=== PATIENT | female | born 1995 | race Caucasian/White ===

== ENCOUNTER 2016-10-20 12:05 | Emergency (ER) | payer BC, MEDICAID ==
[~2016-10-20] VITALS: Ht 165.1 cm; Wt 65.8 kg
[~2016-10-20 12:05] MED LIST: PREN1TAB79 PO
--- OUTSIDE RECORDS SUMMARY | 2016-10-20 12:15 | XMS REPORT | Continuity of Care Document ---
Author Author Formerly [facility], [facility] Address Unknown Phone Unavailable Allergies Active Description Code Type Severity Reaction Onset Reported/Identified Relationship to Patient Clinical Status Yes No Known Drug Allergies [id number] Drug Allergy Unknown N/ A 04/30/2015 Medications Problems Date Dx Coded Attending Type Code Diagnosis Diagnosed By 09/22/2010 RICK HERNANDEZ DO V05.8 GARDASIL 10/30/2011 RICK HERNANDEZ DO V74.1 TB SCREENING 03/09/2014 RICK HERNANDEZ DO V25.01 CONTRACEPTION - ORAL CONTRACEPTION 03/09/2014 RICK HERNANDEZ DO V74.5 STD SCREEN 10/22/2014 Ot 836.0 10/22/2014 Ot E000.8 10/22/2014 Ot E007.6 10/22/2014 Ot E849.4 10/22/2014 Ot E928.9 11/05/2014 KATLIN RIVAS MD Ot V28.81 11/05/2014 KATLIN RIVAS MD Ot V28.81 11/06/2014 KATLIN RIVAS MD Ot V28.81 11/20/2014 KATLIN RIVAS MD Ot V28.81 12/03/2014 KATLIN RIVAS MD Ot V28.81 01/07/2015 KATLIN RIVAS MD Ot V28.81 03/10/2015 Ot 836.0 03/10/2015 Ot E000.8 03/10/2015 Ot E007.6 03/10/2015 Ot E849.4 03/10/2015 Ot E928.9 03/10/2015 KATLIN RIVAS MD Ot V28.81 03/10/2015 KATLIN RIVAS MD Ot V28.81 03/25/2015 KATLIN RIVAS MD Ot O36.5930 04/30/2015 KATLIN RIVAS MD Ot O41.03X0 04/30/2015 KATLIN RIVAS MD Ot Z3A.36 05/03/2015 KATLIN RIVAS MD Ot O36.5930 05/03/2015 KATLIN RIVAS MD Ot Z3A.00 05/05/2015 EVELYN SINGLETON, KATLIN Layne Ot O41.03X0 05/05/2015 EVELYN SINGLETON, KATLIN Layne Ot O41.03X0 05/10/2015 EVELYN SINGLETON, KATLIN Layne Ot O41.03X0 05/10/2015 EVELYN SINGLETON, KATLIN Layne Ot Z3A.00 05/13/2015 EVELYN SINGLETON, KATLIN Layne Ot O36.5930 05/13/2015 EVELYN SINGLETON, KATLIN Layne Ot O41.03X0 05/13/2015 EVELYN SINGLETON, KATLIN Layne Ot Z3A.35 05/16/2015 EVLEYN SINGLETON, KATLIN Layne Ot O41.03X0 05/16/2015 EVELYN SINGLETON, KATLIN Layne Ot O72.1 05/16/2015 EVELYN SINGLETON, KATLIN Layne Ot Z23 05/16/2015 EVELYN SINGLETON, KATLIN Layne Ot Z37.0 05/17/2015 EEVLYN SINGLETON, KATLIN Layne Ot O36.5930 05/17/2015 EVELYN SINGLETON, KATLIN Layne Ot O36.5930 05/17/2015 EVELYN SINGLETON, KATLIN Layne Ot O41.03X0 05/17/2015 EVELYN SINGLETON, KATLIN Layne Ot Z3A.35 05/17/2015 EVELYN SINGLETON, KATLIN Layne Ot O41.03X0 05/17/2015 KATLIN RIVAS MD Ot Z3A.00 05/27/2015 EVELYN SINGLETON, KATLIN Layne Ot O41.03X0 05/27/2015 KATLIN RIVAS MD Ot Z3A.00 06/14/2015 EVELYN SINGLETON, KATLIN Layne Ot O41.03X0 06/14/2015 KATLIN RIVAS MD Ot Z3A.00 08/04/2015 KATLIN RIVAS MD Ot O41.03X0 OLIGOHYDRAMNIOS, THIRD TRIMESTER, NOT AP 08/04/2015 KATLIN RIVAS MD Ot Z3A.00 WEEKS OF GESTATION OF NOT SPEC 08/05/2015 KATLIN RIVAS MD Ot O41.03X0 OLIGOHYDRAMNIOS, THIRD TRIMESTER, NOT AP 08/05/2015 KATLIN RIVAS MD Ot Z3A.00 WEEKS OF GESTATION OF NOT SPEC Procedures Code Description [place] [address] TEST, URINE (IN-HOUSE) 03/09/2014 56798 GC/CHLAM URINE ([facility]) 03/11/2014 Results Encounters ACCT No. Visit Date/Time Discharge Status Pt. Type Provider Facility Loc./Unit Complaint [id number] 03/09/2014 16:28:00 03/09/2014 23: 59:59 CLS Outpatient RICK HERNANDEZ DO
--- NOTE | 2016-10-20 12:41 | ED GU-Female ---
General Chief Complaint: -Female Stated Complaint: POSS MISCARRIAGE Nursing Triage Note: c/o vaginal bleeding since Sun. Cramping started last night. Hx of 6 weeks gestation. Nursing Sepsis Screen: No Definite Risk Source: patient, spouse Exam Limitations: no limitations History of Present Illness Time seen by provider: 12:41 Initial Comments 20-year-old female patient presents to the emergency department complains of vaginal bleeding beginning Sunday. Reports today bleeding is similar to a menstruation. Denies fever, nausea, vomiting, yellow or green discharge, difficulty with urination. Patient states she is approximately 6 weeks . Patient was seen by Dr. Hall last with pelvic exam performed. Timing/Duration: getting worse, other (onset Sunday.) Severity/Quality: cramping Location: suprapubic Radiation: none Activities at Onset: none Prior Genitourinary Problems: none Sexual [place] History: less than 2 months ago, single partner Allergies and Home Medications Allergies Coded Allergies: No Known Drug Allergies (Unverified , 04/30/15) Home Medications Vit W-Ca,Fe,FA(<1 mg) 1 Each Tablet, 1 TAB PO DAILY, (Reported) Constitutional: No chills, No dizziness, No fever, No malaise Respiratory: no symptoms reported Cardiovascular: no symptoms reported Gastrointestinal: abdominal pain (suprapubic abdominal cramping), No constipation, No diarrhea, No loss of appetite, No nausea, No vomiting Genitourinary: see HPI, denies burning, denies discharge, denies dysuria, denies frequency, denies flank pain, denies hematuria, pain (intermittent suprapubic abdominal cramping), other (vaginal bleeding) : Yes Expected Date of Delivery: May 28, 2017 LMP: August 21, 2016 Musculoskeletal: No back pain Skin: no symptoms reported Psychiatric/Neurological: No Symptoms Reported All Other Systemes Reviewed Negative Unless Noted: Yes (Negative excepted noted.) Past Ooohxtp-Lpodat-Vqpyii Hx Patient Social History Recent Foreign Travel: No Contact w/Someone Who Travel: No Recent Infectious Disease Expo: No Immunizations Up To Date Tetanus Booster (TDap): Unknown PED Vaccines UTD: No Surgeries HX Surgeries: Yes (left knee) Respiratory Hx Respiratory Disorders: No Cardiovascular Hx Cardiac Disorders: No Neurological Hx Neurological Disorders: No Reproductive System : Yes Hx : 2 Hx Para: 1 Hx Total # of Abortions (Spona: 0 Hx Reproductive Disorders: No Female Reproductive Disorders: Denies Genitourinary Hx Genitourinary Disorders: No Gastrointestinal Hx Gastrointestinal Disorders: Yes Gastrointestinal Disorders: Gastroesophageal Reflux Musculoskeletal Hx Musculoskeletal Disorders: No Endocrine Hx Endocrine Disorders: No HEENT HX ENT Disorders: No Cancer Hx Cancer: No Psychosocial Hx Psychiatric Problems: No Integumentary HX Skin/Integumentary Disorder: No Blood Transfusions Hx Blood Disorders: No Reviewed Nursing Assessment Reviewed/Agree w Nursing PMH: Yes Family Medical History Significant Family History: No Pertinent Family Hx Family Medial History: Alzheimer's disease 19 MOTHER (grandfather) Completed stroke 19 FATHER (grandfather) Diabetes mellitus 19 FATHER (grandparent) 19 MOTHER (maternal grandparent) Hypertension 19 MOTHER (mother) Non-Hodgkin's lymphoma Respiratory disorder 19 MOTHER (copd grandmother) Physical Exam Vital Signs Vital Sign - Last 12Hours 10/20/16 12:19 Temp 97.5 Pulse 82 Resp 16 B/P (MAP) 117/76 Pulse Ox 98 Capillary Refill : Less Than 3 Seconds General Appearance: WD/WN, no apparent distress HEENT: PERRL/EOMI, pharynx normal Neck: supple, normal inspection Cardiovascular: regular rate, rhythm, no edema, no murmur Respiratory: lungs clear, normal breath sounds, no respiratory distress Gastrointestinal: normal bowel sounds, non tender (unable to reproduce tenderness on exam.), soft, no organomegaly Back: normal inspection Extremities: no pedal edema, normal capillary refill Neurologic/Psychiatric: alert, normal mood/affect, oriented x 3 Skin: normal color, warm/dry Progress/Results/Core Measures Results/Orders Lab Results Laboratory Tests Test 10/20/16 12:51 10/20/16 13:35 Range/Units Human Chorionic Gonadotropin, Quant 2914 H <5 MIU/ML Urine Color YELLOW Urine Clarity CLEAR Urine pH 6.5 5-9 Urine Specific [place] 1.015 L 1.016-1.022 Urine Protein NEGATIVE NEGATIVE Urine Glucose (UA) NEGATIVE NEGATIVE Urine Ketones NEGATIVE NEGATIVE Urine Nitrite NEGATIVE NEGATIVE Urine Bilirubin NEGATIVE NEGATIVE Urine Urobilinogen NORMAL NORMAL MG/DL Urine Leukocyte Esterase NEGATIVE NEGATIVE Urine RBC (Auto) 5+ H NEGATIVE Urine RBC RARE /HPF Urine WBC NONE /HPF Urine Squamous Epithelial Cells 2-5 /HPF Urine Crystals NONE /LPF Urine Bacteria NEGATIVE /HPF Urine Casts NONE /LPF Urine Mucus NEGATIVE /LPF Urine Culture Indicated NO My Orders Orders - ADEOLA MORA Hcg,Quantitative (10/20/16 12:23) Us Ob Transvaginal [id number] (10/20/16 12:23) Ua Culture If Indicated (10/20/16 13:21) Vital Signs/I&O Vital Sign - Last 12Hours 10/20/16 12:19 Temp 97.5 Pulse 82 Resp 16 B/P (MAP) 117/76 Pulse Ox 98 Blood Pressure Mean: 90 Diagnostic Imaging Diagonstic Imaging: Ultrasound Plain Films/CT/US/NM/MRI: pelvis Comments Single intrauterine in fetus measuring 6 weeks 4 days. No cardiac motion noted suggesting demise. Can not exclude early findings. findings per Dr. Perez Reviewed: Discussed w/Radiologist (discussed with Dr. Raudel Perez) Departure Communication Progress Notes Patient seen and evaluated. Patient initially reported being 6 weeks gestation ; however, based on LMP patient is 8 wks 4 days. All laboratory and diagnostic findings discussed with the patient. Patient and spouse both report they were able to find a heart rate of 115 bpm last week in Dr. Hlal's office. In light of previously hearing FHT's, findings of U/S today are indicative of missed AB with demise. Patient instructed to follow-up with Dr. Hall Sunday or Sunday in his office and to call Sunday morning for appointment time. Patient given an outpatient order for repeat HCG quant on . All return precautions were discussed with the patient as described in the discharge instructions of this report. Patient voices understanding and agrees with the treatment plan. Patient case discussed with Dr. Barajas, he agrees with the plan of care. Impression Impression: Primary Impression: Missed with demise before 20 completed weeks of gestation Disposition: 01 HOME, SELF-CARE Condition: Improved Departure-Patient Inst. Decision time for Depature: 14:37 Referrals: CHERRY HALL MD, CHAD C MD (PCP/Family) Primary Care Physician Patient Instructions: Threatened Miscarriage (DC) Add. Discharge Instructions: All discharge instructions reviewed with patient and/or family. Voiced understanding. Tylenol extra strength [id number] as directed for pain. Drink plenty of fluids. No intercourse, use of tampons, or strenuous activity until released by Dr. Hall. Follow-up with Dr. Hall Sunday or Sunday for recheck, repeat ultrasound, and repeat labs. Call first thing Sunday morning for appointment time. Return to the emergency department for worsened pain, fever, vaginal bleeding with greater than 2 pads per hour for greater than 2 hours, vaginal discharge, difficulty with urination, or any other concerns. Work/School Note: Work Release Form Date Seen in the Emergency Department: Oct 20, 2016 Return to Work: Oct 21, 2016 ADEOLA MORA Oct 20, 2016 12:41
[2016-10-20 13:43] LABS: BILIRUBIN,URINE NEGATIVE (NEGATIVE); KETONES,URINE NEGATIVE (NEGATIVE); LEUKOCYTE ESTERASE ,URINE NEGATIVE (NEGATIVE); NITRITE,URINE NEGATIVE (NEGATIVE); PH,URINE 6.5 (5-9); PROTEIN,URINE NEGATIVE (NEGATIVE); UROBILINOGEN,URINE NORMAL (NORMAL)
[2016-10-20 14:45] VITALS: BP 116/74
--- NOTE | 2016-10-20 14:49 | Diagnostic Imaging Report ---
Obstetrical sonogram. INDICATION: Evaluate . FINDINGS: There is a single intrauterine gestation demonstrated. Based on the patient 's reported last menstrual period, the gestation should be 8 weeks and 4 days. The crown-rump length of the pole is measuring at 6 weeks 4 days. There is no demonstration of cardiac motion. There is a large right ovarian corpus luteal cyst. The ovary maintains normal Doppler blood flow. The left ovary is not demonstrated. IMPRESSION: There is an intrauterine gestation with a pole and a yolk sac. pole measures at 6 weeks 4 days, and there is no evidence of cardiac motion. While the features are suspect for cardiac demise, given a reported estimated gestational age of 8 weeks 4 days based on last menstrual period, an early gestation is not yet excluded. Recommend continued correlation with serial quantitative beta hCGs and repeat sonographic imaging as clinically indicated. These findings were discussed with CRIS Matta, in the [facility] Emergency Department prior to this dictation. Dictated by: Dictated on workstation # [id number]
== END 2016-10-20 14:45 | disposition home or self-care (01) ==
LOC: EDUNIT# 12:05 → ER 12:09
DX: O02.1 Missed abortion (principal); O99.62 Diseases of the digestive system complicating childbirth; K21.9 Gastro-esophageal reflux disease without esophagitis; Z3A.08 8 weeks gestation of pregnancy; Z98.890 Other specified postprocedural states
CPT/HCPCS: 36415; 76817; 81000; 84702; 99282

== ENCOUNTER 2017-06-07 11:33 | Inpatient (IN) | payer BC ==
[~2017-06-07] VITALS: Ht 165.1 cm; Wt 71.2 kg
[2017-06-07 11:40] VITALS: BP 112/67
[2017-06-07] MEDS: D5 LR IV SOLUTION 1,000 ML IV SCH ×4 (11:49→21:14)
[2017-06-07 12:15] LABS: HEMOGLOBIN 10.8 G/DL (11.5-16.0); RED BLOOD COUNT 3.42 10^6/uL (4.35-5.85); WHITE BLOOD COUNT 11.9 10^3/uL (4.3-11.0)
[2017-06-07 12:21] LABS: BILIRUBIN,URINE NEGATIVE (NEGATIVE); CLARITY,URINE CLEAR; COLOR,URINE YELLOW; GLUCOSE, URINE (UA) NEGATIVE (NEGATIVE); KETONES,URINE NEGATIVE (NEGATIVE); LEUKOCYTE ESTERASE ,URINE NEGATIVE (NEGATIVE); NITRITE,URINE NEGATIVE (NEGATIVE); PH,URINE 7 (5-9); PROTEIN,URINE NEGATIVE (NEGATIVE); UROBILINOGEN,URINE NORMAL (NORMAL)
[2017-06-07] MEDS ORDERED: CATHETER FLUSH 10 ML SYR IV PRN (12:30)
[2017-06-07 12:33] LABS: BACTERIA,URINE NEGATIVE /HPF; RBC,URINE 25-50 /HPF; SQUAMOUS EPITHELIAL CELL,UR 0-2 /HPF; WBC,URINE RARE /HPF
[2017-06-07] MEDS: BUTORPHANOL INJ 2 MG/ML (STADOL) VIAL IV PRN ×5 (12:55→23:44)
[2017-06-07] MEDS ORDERED: ceFAZolin 1,000 MG (ANCEF) VIAL ONE (14:14)
[2017-06-07] MEDS ORDERED: NS (IVPB) 100 ML ONE (14:15)
--- NOTE | 2017-06-07 15:11 | Diagnostic Imaging Report ---
INDICATION: Right flank pain and hematuria. TECHNIQUE: Bilateral renal sonography performed in the routine fashion. COMPARISON: There is no previous study for comparison. FINDINGS: On the right side, the kidney measured 12.8 x 6.9 x 7.7 cm. There was significant right hydronephrosis. On the left side, the kidney measured 9.8 x 5.8 x 5.5 cm. There was no left hydronephrosis. Visualized portions of the bladder were unremarkable. Left ureteral jet was visualized, right ureteral jet was not seen. IMPRESSION: There is significant right-sided hydronephrosis. There was no right ureteral jet visualized. Left kidney shows no hydronephrosis. Urinary bladder is otherwise unremarkable. Dictated by: Dictated on workstation # [id number]
[2017-06-07] MEDS ORDERED: INFLUENZA TRIvalent 2017-2018 0.5 ML/45 MCG SYR IM ONE (15:15)
[2017-06-07 17:00] VITALS: BP 117/67
--- NOTE | 2017-06-07 17:40 | History & Physical ---
History and Physical Date Seen by Provider: Jun 07, 2017 Time Seen by Provider: 17:34 This patient is a 21-year-old G1 white female currently at 28 weeks gestation. She was seen in clinic today with complaint of severe pelvic right side and right flank pain. She reported having blood bloody fluid oozing from the vagina. On exam there was no blood in the vaginal vault. Her urine was grossly bloody. Her presentation was a fairly typical for a ureteral stone. She was sent to labor and delivery for evaluation and further management. UA was consistent with nephrolithiasis/ureteral lithiasis. Patient has been treated with IV fluids and IV analgesics with good effect. An ultrasound of the kidney and ureters showed a dilated right ureter that appeared to be obstructed and no ureteral jets in the bladder from the right ureter. The left kidney and ureter were normal. Dr. Grande was consult via telephone by the labor and delivery nurse(Rashida) and requested a limited noncontrast CT which has been ordered. I was called by a senior manufacturing technician with concerns about doing a CT on a woman they offered a KUB and some other type of ultrasound. I agree that they could do whatever studies would be eliminating and with the Rafael requested Dr. Grande gave to determine if there was specifically a stone. Thus far nothing further has been done. This evening the patient is comfortable after just having it dose of Stadol. She is voiding well. She is empirically on Ancef. Allergies are none Medications are vitamins Medical social and surgical histories are per the antepartum record HEENT exam is normal Neck is supple no lymphadenopathy no thyromegaly Abdomen is gravid soft nontender nondistended Extremities show no clubbing or cyanosis. There is minimal pretibial pitting edema. There is no Homans sign. There is mild right CVA tenderness. There is no paraspinal rigidity. Pelvic exam shows a cervix that is thick and closed on exam performed in my clinic monitor shows a normal NST Laboratory Tests Test 06/07/17 11:48 06/07/17 12:10 Range/Units White Blood Count 11.9 H 4.3-11.0 10^3/uL Red Blood Count 3.42 L 4.35-5.85 10^6/uL Hemoglobin 10.8 L 11.5-16.0 G/DL Hematocrit 31 L 35-52 % Mean Corpuscular Volume 91 80-99 FL Mean Corpuscular Hemoglobin 32 25-34 PG Mean Corpuscular Hemoglobin Concent 35 32-36 G/DL Red Cell Distribution Width 13.0 10.0-14.5 % Platelet Count 225 130-400 10^3/uL Mean Platelet Volume 10.0 7.4-10.4 FL Urine Color YELLOW Urine Clarity CLEAR Urine pH 7 5-9 Urine Specific [place] 1.005 L 1.016-1.022 Urine Protein NEGATIVE NEGATIVE Urine Glucose (UA) NEGATIVE NEGATIVE Urine Ketones NEGATIVE NEGATIVE Urine Nitrite NEGATIVE NEGATIVE Urine Bilirubin NEGATIVE NEGATIVE Urine Urobilinogen NORMAL NORMAL MG/DL Urine Leukocyte Esterase NEGATIVE NEGATIVE Urine RBC (Auto) 4+ H NEGATIVE Urine RBC 25-50 H /HPF Urine WBC RARE /HPF Urine Squamous Epithelial Cells 0-2 /HPF Urine Crystals NONE /LPF Urine Bacteria NEGATIVE /HPF Urine Casts NONE /LPF Urine Mucus NEGATIVE /LPF Urine Culture Indicated NO UA is as noted Assessment and plan 28 week intrauterine in a patient with renal colic likely secondary to obstructed right ureter possibly due to a stone versus physiologic related obstruction versus other. We will continue the current management with IV fluids IV analgesics and IV antibiotics. Further workup in the form of appropriate imaging is pending radiology. Renal colic/nephrolithiasis Allergies and Home Medications Allergies Coded Allergies: No Known Drug Allergies (Unverified , 04/30/15) Patient Home Medication List Home Medication List Reviewed: Yes CHERRY LACEY MD Jun 07, 2017 17:40
--- NOTE | 2017-06-07 18:15 | Diagnostic Imaging Report ---
PROCEDURE: CT urinary tract, rule out kidney stone. TECHNIQUE: Multiple contiguous axial images were obtained through the abdomen and pelvis without the use of intravenous contrast. INDICATION: Right-sided hydronephrosis on ultrasound from earlier today. No history of stones. FINDINGS: Noncontrast CT scan of the abdomen and pelvis demonstrates 6.3 mm calculus in the right ureterovesical junction possibly extending into the urinary bladder. Moderate to severe right hydronephrosis is present. Minimal left hydronephrosis is present. There is a gravid uterus. No free fluid is present. The lung bases are clear. The liver, gallbladder, spleen, pancreas, adrenal glands and kidneys are normal. The bowel loops appear normal. The osseous structures are normal. IMPRESSION: There is a 6 mm calculi in the right ureterovesical junction with moderate to severe right hydronephrosis. Gravid uterus is present with mild left hydronephrosis. Dictated by: Dictated on workstation # [id number]
[2017-06-07 19:35] VITALS: BP 112/71
[2017-06-07] MEDS: ceFAZolin INJECTION 1,000 MG in NS (IVPB) 100 ML IV SCH (20:27)
[2017-06-07 23:45] VITALS: BP 105/57
[2017-06-08] MEDS: D5 LR IV SOLUTION 1,000 ML IV SCH ×5 (01:22→23:28)
[2017-06-08] MEDS: BUTORPHANOL INJ 2 MG/ML (STADOL) VIAL IV PRN ×5 (02:17→12:19)
[2017-06-08] MEDS: ceFAZolin INJECTION 1,000 MG in NS (IVPB) 100 ML IV SCH ×4 (02:17→22:28)
[2017-06-08 04:23] VITALS: BP 108/65
--- NOTE | 2017-06-08 07:54 | Progress Note-Standard ---
Standard Progress Note Progress Notes/Assess & Plan Date Seen by Provider: Jun 08, 2017 Time Seen by Provider: 07:52 Progress/Assessment & Plan Patient complains of persistent right flank and right lower quadrant pain. CT yesterday demonstrated a 6 mm calculus at the ureterovesical conjunction. Patient's pain is controlled adequately with Stadol. She denies rupture membranes or bleeding. She does feel baby moving and denies contractions. Vital Signs Date Time Temp Pulse Resp B/P (MAP) Pulse Ox O2 Delivery O2 Flow Rate FiO2 06/08/17 04:23 97.6 92 18 108/65 (79) 100 06/07/17 23:45 97.6 78 18 105/57 (73) 98 06/07/17 19:35 98.8 81 18 112/71 (85) 98 06/07/17 17:00 98.3 88 18 117/67 (84) 98 Room Air 06/07/17 11:40 97.2 79 18 112/67 (82) Room Air I & O 06/08/17 07:00 Intake Total 5550 ml Output Total 2150 ml Balance 3400 ml vital signs are stable patient is afebrile Abdomen is gravid soft nontender nondistended Extreme show clubbing cyanosis. There is no Homans sign. Assessment and plan right ureteral stone on CT that appears almost into the bladder. We'll continue fluids and analgesia and antibiotics and observe for spontaneous passage of stone. If symptoms worsen and we will consider urology consult for management. This likely would require transfer as the local urologist is out of town CHERRY LACEY MD Jun 08, 2017 07:54
[2017-06-08 08:00] VITALS: BP 112/67
--- NOTE | 2017-06-08 14:08 | Progress Note-Standard ---
Standard Progress Note Progress Notes/Assess & Plan Date Seen by Provider: Jun 08, 2017 Time Seen by Provider: 14:05 Progress/Assessment & Plan Patient complains of persistent right flank and right lower quadrant pain. CT yesterday demonstrated a 6 mm calculus at the ureterovesical conjunction. Patient's pain is controlled adequately with Stadol. She denies rupture membranes or bleeding. She does feel baby moving and denies contractions. Vital Signs Date Time Temp Pulse Resp B/P (MAP) Pulse Ox O2 Delivery O2 Flow Rate FiO2 06/08/17 04:23 97.6 92 18 108/65 (79) 100 06/07/17 23:45 97.6 78 18 105/57 (73) 98 06/07/17 19:35 98.8 81 18 112/71 (85) 98 06/07/17 17:00 98.3 88 18 117/67 (84) 98 Room Air 06/07/17 11:40 97.2 79 18 112/67 (82) Room Air I & O 06/08/17 07:00 Intake Total 5550 ml Output Total 2150 ml Balance 3400 ml vital signs are stable patient is afebrile Abdomen is gravid soft nontender nondistended Extreme show clubbing cyanosis. There is no Homans sign. Assessment and plan right ureteral stone on CT that appears almost into the bladder. We'll continue fluids and analgesia and antibiotics and observe for spontaneous passage of stone. If symptoms worsen and we will consider urology consult for management. This likely would require transfer as the local urologist is out of town [phone] Patient continues complaining of right flank low back and right lower quadrant pain. She has not passed a stone as of yet. Her pain is adequately controlled using a milligram of Stadol about every 2 hours. She denies any other complaints. She is not nauseated and is afebrile. I discussed treatment options with her which include changing to oral medication which if proves satisfactory pain control and consider allowing her discharge home with follow-up with urologist next week versus transfer to where they have immediate urologic care which is lacking progress at the moment as a urologist is out of town versus continued present management until Sunday when our urologist will return. Patient would really prefer not to have to be transferred. She expresses reservations about discharge home with the degree of pain that she is having. So current plan is to try to change to oral medication for pain management. We' ll continue inpatient management through the night and reevaluate tomorrow. Anticipation is that she will pass the stone or have urologist intervene next week. Final option would be a percutaneous nephrostomy tube but considering the potential complications for waiting for urologic care for removal of the stone is preferable Patient agrees with this plan Vital Signs Date Time Temp Pulse Resp B/P (MAP) Pulse Ox O2 Delivery O2 Flow Rate FiO2 06/08/17 08:00 97.6 75 18 112/67 (82) Room Air 06/08/17 04:23 97.6 92 18 108/65 (79) 100 06/07/17 23:45 97.6 78 18 105/57 (73) 98 06/07/17 19:35 98.8 81 18 112/71 (85) 98 06/07/17 17:00 98.3 88 18 117/67 (84) 98 Room Air I & O 06/08/17 07:00 Intake Total 5550 ml Output Total 2150 ml Balance 3400 ml The abdomen is benign. Abdomen is gravid and nontender. Extreme show clubbing or cyanosis. There is no Homans sign. Assessment and plan as noted above CHERRY LACEY MD Jun 08, 2017 2:08 pm
[2017-06-08] MEDS: oxyCODONE/APAP 10/325MG (PERCOCET 10) TABLET PO PRN ×3 (14:56→23:49)
[2017-06-08 15:13] VITALS: BP 107/59
[2017-06-08 17:47] VITALS: BP 103/58
[2017-06-08 20:00] VITALS: BP 102/62
[2017-06-08 23:49] VITALS: BP 87/54
[2017-06-09] MEDS: D5 LR IV SOLUTION 1,000 ML IV SCH ×7 (00:53→21:28)
[2017-06-09] MEDS: ceFAZolin INJECTION 1,000 MG in NS (IVPB) 100 ML IV SCH ×5 (04:44→23:40)
[2017-06-09] MEDS: oxyCODONE/APAP 10/325MG (PERCOCET 10) TABLET PO PRN ×4 (04:44→19:40)
[2017-06-09 09:10] VITALS: BP 115/70
--- NOTE | 2017-06-09 09:44 | Progress Note-Standard ---
Standard Progress Note Progress Notes/Assess & Plan Date Seen by Provider: Jun 09, 2017 Time Seen by Provider: 09:41 Progress/Assessment & Plan Patient complains of persistent right flank and right lower quadrant pain. CT yesterday demonstrated a 6 mm calculus at the ureterovesical conjunction. Patient's pain is controlled adequately with Stadol. She denies rupture membranes or bleeding. She does feel baby moving and denies contractions. Vital Signs Date Time Temp Pulse Resp B/P (MAP) Pulse Ox O2 Delivery O2 Flow Rate FiO2 06/08/17 04:23 97.6 92 18 108/65 (79) 100 06/07/17 23:45 97.6 78 18 105/57 (73) 98 06/07/17 19:35 98.8 81 18 112/71 (85) 98 06/07/17 17:00 98.3 88 18 117/67 (84) 98 Room Air 06/07/17 11:40 97.2 79 18 112/67 (82) Room Air I & O 06/08/17 07:00 Intake Total 5550 ml Output Total 2150 ml Balance 3400 ml vital signs are stable patient is afebrile Abdomen is gravid soft nontender nondistended Extreme show clubbing cyanosis. There is no Homans sign. Assessment and plan right ureteral stone on CT that appears almost into the bladder. We'll continue fluids and analgesia and antibiotics and observe for spontaneous passage of stone. If symptoms worsen and we will consider urology consult for management. This likely would require transfer as the local urologist is out of town 3 [phone] at [phone] Patient continues complaining of right flank low back and right lower quadrant pain. She has not passed a stone as of yet. Her pain is adequately controlled using a milligram of Stadol about every 2 hours. She denies any other complaints. She is not nauseated and is afebrile. I discussed treatment options with her which include changing to oral medication which if proves satisfactory pain control and consider allowing her discharge home with follow-up with urologist next week versus transfer to where they have immediate urologic care which is lacking progress at the moment as a urologist is out of town versus continued present management until Sunday when our urologist will return. Patient would really prefer not to have to be transferred. She expresses reservations about discharge home with the degree of pain that she is having. So current plan is to try to change to oral medication for pain management. We' ll continue inpatient management through the night and reevaluate tomorrow. Anticipation is that she will pass the stone or have urologist intervene next week. Final option would be a percutaneous nephrostomy tube but considering the potential complications for waiting for urologic care for removal of the stone is preferable Patient agrees with this plan Vital Signs Date Time Temp Pulse Resp B/P (MAP) Pulse Ox O2 Delivery O2 Flow Rate FiO2 06/08/17 08:00 97.6 75 18 112/67 (82) Room Air 06/08/17 04:23 97.6 92 18 108/65 (79) 100 06/07/17 23:45 97.6 78 18 105/57 (73) 98 06/07/17 19:35 98.8 81 18 112/71 (85) 98 06/07/17 17:00 98.3 88 18 117/67 (84) 98 Room Air I & O 06/08/17 07:00 Intake Total 5550 ml Output Total 2150 ml Balance 3400 ml The abdomen is benign. Abdomen is gravid and nontender. Extreme show clubbing or cyanosis. There is no Homans sign. Assessment and plan as noted above June 09, 2017 Patient is complaining of persistent pain although it is adequately controlled now with oral Percocet. There is no evidence that she has passed stone as of yet. Plan is continue current management and consult Dr. Grande on Sunday if the stone maintenance in situ. Patient denies rupture membranes or bleeding. She denies contractions. She denies shortness of breath nausea or vomiting or headache. Vital Signs Date Time Temp Pulse Resp B/P (MAP) Pulse Ox O2 Delivery O2 Flow Rate FiO2 06/08/17 23:49 97.1 71 20 87/54 (65) 98 Room Air 06/08/17 20:00 98.3 60 20 102/62 (75) 98 Room Air 06/08/17 17:47 98.2 73 20 103/58 (73) 06/08/17 15:13 98.2 85 20 107/59 (75) I & O 06/09/17 07:00 Intake Total 6640 ml Output Total 6200 ml Balance 440 ml Vital signs are stable. Patient is afebrile. The abdomen is gravid soft nontender nondistended Extreme show clubbing cyanosis. There is no Homans sign. Pelvic exam is deferred Assessment and plan hospital day number 3 with severe right hydronephrosis secondary to a ureteral stone stuck at the ureterovesical junction. With continuing hydration and analgesia and IV antibiotics in anticipation of spontaneous passage of the stone. Should that not happen by Sunday then Dr. Grande urologist will assume care of the patient CHERRY LACEY MD Jun 09, 2017 9:43 am
[2017-06-09 10:05] LABS: BASOPHILS % (AUTO) 0 % (0-10); EOSINOPHILS # (AUTO) 0.1 10^3/uL (0.0-0.3); EOSINOPHILS % (AUTO) 2 % (0-10); HEMATOCRIT 29 % (35-52); HEMOGLOBIN 9.7 G/DL (11.5-16.0); LYMPHOCYTES # (AUTO) 2.2 X 10^3 (1.0-4.0); LYMPHOCYTES % (AUTO) 29 % (12-44); MEAN CORPUSCULAR HEMOGLOBIN 32 PG (25-34); MEAN CORPUSCULAR HGB CONC 34 G/DL (32-36); MEAN CORPUSCULAR VOLUME 94 FL (80-99); MEAN PLATELET VOLUME 9.9 FL (7.4-10.4); MONOCYTES # (AUTO) 0.5 X 10^3 (0.0-1.0); MONOCYTES % (AUTO) 7 % (0-12); NEUTROPHILS # (AUTO) 4.8 X 10^3 (1.8-7.8); NEUTROPHILS % (AUTO) 63 % (42-75); PLATELET COUNT 179 10^3/uL (130-400); RED BLOOD COUNT 3.06 10^6/uL (4.35-5.85); RED CELL DISTRIBUTION WIDTH 13.4 % (10.0-14.5); WHITE BLOOD COUNT 7.7 10^3/uL (4.3-11.0)
[2017-06-09 10:27] LABS: ALANINE AMINOTRANSFERASE 9 U/L (0-55); ALBUMIN 2.8 GM/DL (3.2-4.5); ALKALINE PHOSPHATASE 53 U/L (40-136); BILIRUBIN,TOTAL 0.5 MG/DL (0.1-1.0); BUN/CREATININE RATIO 7; CALCIUM 8.2 MG/DL (8.5-10.1); CARBON DIOXIDE 22 MMOL/L (21-32); CHLORIDE 109 MMOL/L (98-107); CREATININE SERUM 0.57 MG/DL (0.60-1.30); GFR ESTIMATED > 60; GLUCOSE 88 MG/DL (70-105); POTASSIUM 3.6 MMOL/L (3.6-5.0); SODIUM 137 MMOL/L (135-145); TOTAL PROTEIN 5.3 GM/DL (6.4-8.2)
[2017-06-09 16:04] VITALS: BP 104/67
[2017-06-09 23:40] VITALS: BP 111/61
[2017-06-10] MEDS: oxyCODONE/APAP 10/325MG (PERCOCET 10) TABLET PO PRN ×5 (01:19→18:33)
[2017-06-10] MEDS: D5 LR IV SOLUTION 1,000 ML IV SCH ×6 (02:00→19:40)
[2017-06-10] MEDS: ceFAZolin INJECTION 1,000 MG in NS (IVPB) 100 ML IV SCH ×3 (06:02→18:00)
--- NOTE | 2017-06-10 08:34 | Progress Note-Standard ---
Standard Progress Note Progress Notes/Assess & Plan Date Seen by Provider: Jun 10, 2017 Time Seen by Provider: 08:32 Progress/Assessment & Plan Patient complains of persistent right flank and right lower quadrant pain. CT yesterday demonstrated a 6 mm calculus at the ureterovesical conjunction. Patient's pain is controlled adequately with Stadol. She denies rupture membranes or bleeding. She does feel baby moving and denies contractions. Vital Signs Date Time Temp Pulse Resp B/P (MAP) Pulse Ox O2 Delivery O2 Flow Rate FiO2 06/08/17 04:23 97.6 92 18 108/65 (79) 100 06/07/17 23:45 97.6 78 18 105/57 (73) 98 06/07/17 19:35 98.8 81 18 112/71 (85) 98 06/07/17 17:00 98.3 88 18 117/67 (84) 98 Room Air 06/07/17 11:40 97.2 79 18 112/67 (82) Room Air I & O 06/08/17 07:00 Intake Total 5550 ml Output Total 2150 ml Balance 3400 ml vital signs are stable patient is afebrile Abdomen is gravid soft nontender nondistended Extreme show clubbing cyanosis. There is no Homans sign. Assessment and plan right ureteral stone on CT that appears almost into the bladder. We'll continue fluids and analgesia and antibiotics and observe for spontaneous passage of stone. If symptoms worsen and we will consider urology consult for management. This likely would require transfer as the local urologist is out of town 3 [phone] at [phone] Patient continues complaining of right flank low back and right lower quadrant pain. She has not passed a stone as of yet. Her pain is adequately controlled using a milligram of Stadol about every 2 hours. She denies any other complaints. She is not nauseated and is afebrile. I discussed treatment options with her which include changing to oral medication which if proves satisfactory pain control and consider allowing her discharge home with follow-up with urologist next week versus transfer to where they have immediate urologic care which is lacking progress at the moment as a urologist is out of town versus continued present management until Sunday when our urologist will return. Patient would really prefer not to have to be transferred. She expresses reservations about discharge home with the degree of pain that she is having. So current plan is to try to change to oral medication for pain management. We' ll continue inpatient management through the night and reevaluate tomorrow. Anticipation is that she will pass the stone or have urologist intervene next week. Final option would be a percutaneous nephrostomy tube but considering the potential complications for waiting for urologic care for removal of the stone is preferable Patient agrees with this plan Vital Signs Date Time Temp Pulse Resp B/P (MAP) Pulse Ox O2 Delivery O2 Flow Rate FiO2 06/08/17 08:00 97.6 75 18 112/67 (82) Room Air 06/08/17 04:23 97.6 92 18 108/65 (79) 100 06/07/17 23:45 97.6 78 18 105/57 (73) 98 06/07/17 19:35 98.8 81 18 112/71 (85) 98 06/07/17 17:00 98.3 88 18 117/67 (84) 98 Room Air I & O 06/08/17 07:00 Intake Total 5550 ml Output Total 2150 ml Balance 3400 ml The abdomen is benign. Abdomen is gravid and nontender. Extreme show clubbing or cyanosis. There is no Homans sign. Assessment and plan as noted above June 09, 2017 Patient is complaining of persistent pain although it is adequately controlled now with oral Percocet. There is no evidence that she has passed stone as of yet. Plan is continue current management and consult Dr. Grande on Sunday if the stone maintenance in situ. Patient denies rupture membranes or bleeding. She denies contractions. She denies shortness of breath nausea or vomiting or headache. Vital Signs Date Time Temp Pulse Resp B/P (MAP) Pulse Ox O2 Delivery O2 Flow Rate FiO2 06/08/17 23:49 97.1 71 20 87/54 (65) 98 Room Air 06/08/17 20:00 98.3 60 20 102/62 (75) 98 Room Air 06/08/17 17:47 98.2 73 20 103/58 (73) 06/08/17 15:13 98.2 85 20 107/59 (75) I & O 06/09/17 07:00 Intake Total 6640 ml Output Total 6200 ml Balance 440 ml Vital signs are stable. Patient is afebrile. The abdomen is gravid soft nontender nondistended Extreme show clubbing cyanosis. There is no Homans sign. Pelvic exam is deferred Assessment and plan hospital day number 3 with severe right hydronephrosis secondary to a ureteral stone stuck at the ureterovesical junction. With continuing hydration and analgesia and IV antibiotics in anticipation of spontaneous passage of the stone. Should that not happen by Sunday then Dr. Grande urologist will assume care of the patient June 10, 2017 Patient is without complaint except for the continued right flank side and lower abdomen pain. She does ambulating. She is tolerating by mouth well. She denies contractions, denies shortness breath, denies nausea vomiting, and denies headache. Vital Signs Date Time Temp Pulse Resp B/P (MAP) Pulse Ox O2 Delivery O2 Flow Rate FiO2 06/09/17 23:40 97.9 61 18 111/61 (78) 100 Room Air 06/09/17 16:04 98.4 87 18 104/67 (79) 98 Room Air 06/09/17 09:10 98.2 75 18 115/70 (85) 100 Room Air I & O 06/10/17 07:00 Intake Total 9020 ml Output Total 6625 ml Balance 2395 ml Vital signs are stable. Patient is afebrile. monitor shows normal heart rate pattern with no contractions. Physical exam is benign. The abdomen is gravid and nontender. Extreme show no clubbing or cyanosis. There is no Homans sign. Assessment and plan hospital day 3 with a right ureteral stone and severe renal colic. IV fluids IV analgesia and IV antibiotics continue. If the stone is not passed spontaneously then Dr. Grande will be available to consult on the patient CHERRY LACEY MD Jun 10, 2017 8:34 am
[2017-06-10 09:38] VITALS: BP 106/65
[2017-06-10 16:10] VITALS: BP 105/60
--- NOTE | 2017-06-10 21:01 | CONSULTATION REPORT ---
DATE OF SERVICE: 06/10/2017 ATTENDING PHYSICIAN: Dr. Hall. SUMMARY: After reviewing the patient's records, interviewing her, examining her, and look at her x-rays and chart, this is a 21-year-old 28 weeks' gestation on her second baby admitted with right-sided abdominal and flank pain, was found to have a 6 mm stone at the distal right ureter and or near the ureterovesical junction causing hydronephrosis. She has been having on and off pain at level of 5 controlled by analgesics. She has not passed the stone. She has remained afebrile and vital signs stable. This is her first stone. FAMILY HISTORY: Negative for stones. PERSONAL HISTORY: The patient does not smoke, drinks or uses any illicit drugs. PAST HISTORY: Healthy. MEDICATIONS: The only medicine she is on is vitamins. PHYSICAL EXAM: VITAL SIGNS: Per chart. GENERAL: Well-nourished, well developed in no acute distress. HEAD: Normocephalic. ENT: Unremarkable. NECK: Supple. No bruits. CHEST: Clear. Nontender. HEART: Regular rate and rhythm, no murmurs. ABDOMEN: Soft with a gravid uterus and mild right CVA tenderness. EXTREMITIES: Lower extremity, no edema or cyanosis. NEUROLOGIC: Grossly intact. Oriented x3. IMPRESSION: Right distal ureteral stone with hydronephrosis and pain in a 28 weeks' gestation woman. PLAN: Unless she passes the stone, we will take her to surgery tomorrow morning and do ureteroscopy with stone lithotripsy, possible basket double-J stent or lithotomy. Procedure was fully explained to her and her partner on the risk for the baby either from anesthesia, fluoroscopy or procedure itself. The possibility of inability to get the stone, putting a stent was discussed, was maybe later need to put a percutaneous nephrostomy tube or send her to another institution. This was also offered to her before and she elected to proceed tomorrow. We will monitor the baby before, during and after surgery. Thank you for letting me to participate in the care of this patient. We will follow with you. Job ID: [id number] DocumentID: [id number] Dictated Date: 06/10/2017 20:31:26 Trucking Manager Date: 06/10/2017 21:00:35 Dictated By: ALEXANDRU QUACH MD
[2017-06-11] VITALS: BP 106/59
[2017-06-11] MEDS: oxyCODONE/APAP 10/325MG (PERCOCET 10) TABLET PO PRN
[2017-06-11] MEDS: D5 LR IV SOLUTION 1,000 ML IV SCH ×2 (00:47→04:40)
[2017-06-11] MEDS: ceFAZolin INJECTION 1,000 MG in NS (IVPB) 100 ML IV SCH ×3 (06:41)
[2017-06-11 07:30] VITALS: BP 117/76
--- NOTE | 2017-06-11 07:57 | Progress Note-Standard ---
Standard Progress Note Progress Notes/Assess & Plan Date Seen by Provider: Jun 11, 2017 Time Seen by Provider: 07:55 Progress/Assessment & Plan Patient complains of persistent right flank and right lower quadrant pain. CT yesterday demonstrated a 6 mm calculus at the ureterovesical conjunction. Patient's pain is controlled adequately with Stadol. She denies rupture membranes or bleeding. She does feel baby moving and denies contractions. Vital Signs Date Time Temp Pulse Resp B/P (MAP) Pulse Ox O2 Delivery O2 Flow Rate FiO2 06/08/17 04:23 97.6 92 18 108/65 (79) 100 06/07/17 23:45 97.6 78 18 105/57 (73) 98 06/07/17 19:35 98.8 81 18 112/71 (85) 98 06/07/17 17:00 98.3 88 18 117/67 (84) 98 Room Air 06/07/17 11:40 97.2 79 18 112/67 (82) Room Air I & O 06/08/17 07:00 Intake Total 5550 ml Output Total 2150 ml Balance 3400 ml vital signs are stable patient is afebrile Abdomen is gravid soft nontender nondistended Extreme show clubbing cyanosis. There is no Homans sign. Assessment and plan right ureteral stone on CT that appears almost into the bladder. We'll continue fluids and analgesia and antibiotics and observe for spontaneous passage of stone. If symptoms worsen and we will consider urology consult for management. This likely would require transfer as the local urologist is out of town 3 218 at 1405 Patient continues complaining of right flank low back and right lower quadrant pain. She has not passed a stone as of yet. Her pain is adequately controlled using a milligram of Stadol about every 2 hours. She denies any other complaints. She is not nauseated and is afebrile. I discussed treatment options with her which include changing to oral medication which if proves satisfactory pain control and consider allowing her discharge home with follow-up with urologist next week versus transfer to where they have immediate urologic care which is lacking progress at the moment as a urologist is out of town versus continued present management until Sunday when our urologist will return. Patient would really prefer not to have to be transferred. She expresses reservations about discharge home with the degree of pain that she is having. So current plan is to try to change to oral medication for pain management. We' ll continue inpatient management through the night and reevaluate tomorrow. Anticipation is that she will pass the stone or have urologist intervene next week. Final option would be a percutaneous nephrostomy tube but considering the potential complications for waiting for urologic care for removal of the stone is preferable Patient agrees with this plan Vital Signs Date Time Temp Pulse Resp B/P (MAP) Pulse Ox O2 Delivery O2 Flow Rate FiO2 06/08/17 08:00 97.6 75 18 112/67 (82) Room Air 06/08/17 04:23 97.6 92 18 108/65 (79) 100 06/07/17 23:45 97.6 78 18 105/57 (73) 98 06/07/17 19:35 98.8 81 18 112/71 (85) 98 06/07/17 17:00 98.3 88 18 117/67 (84) 98 Room Air I & O 06/08/17 07:00 Intake Total 5550 ml Output Total 2150 ml Balance 3400 ml The abdomen is benign. Abdomen is gravid and nontender. Extreme show clubbing or cyanosis. There is no Homans sign. Assessment and plan as noted above June 09, 2017 Patient is complaining of persistent pain although it is adequately controlled now with oral Percocet. There is no evidence that she has passed stone as of yet. Plan is continue current management and consult Dr. Grande on Sunday if the stone maintenance in situ. Patient denies rupture membranes or bleeding. She denies contractions. She denies shortness of breath nausea or vomiting or headache. Vital Signs Date Time Temp Pulse Resp B/P (MAP) Pulse Ox O2 Delivery O2 Flow Rate FiO2 06/08/17 23:49 97.1 71 20 87/54 (65) 98 Room Air 06/08/17 20:00 98.3 60 20 102/62 (75) 98 Room Air 06/08/17 17:47 98.2 73 20 103/58 (73) 06/08/17 15:13 98.2 85 20 107/59 (75) I & O 06/09/17 07:00 Intake Total 6640 ml Output Total 6200 ml Balance 440 ml Vital signs are stable. Patient is afebrile. The abdomen is gravid soft nontender nondistended Extreme show clubbing cyanosis. There is no Homans sign. Pelvic exam is deferred Assessment and plan hospital day number 3 with severe right hydronephrosis secondary to a ureteral stone stuck at the ureterovesical junction. With continuing hydration and analgesia and IV antibiotics in anticipation of spontaneous passage of the stone. Should that not happen by Sunday then Dr. Grande urologist will assume care of the patient June 10, 2017 Patient is without complaint except for the continued right flank side and lower abdomen pain. She does ambulating. She is tolerating by mouth well. She denies contractions, denies shortness breath, denies nausea vomiting, and denies headache. Vital Signs Date Time Temp Pulse Resp B/P (MAP) Pulse Ox O2 Delivery O2 Flow Rate FiO2 06/09/17 23:40 97.9 61 18 111/61 (78) 100 Room Air 06/09/17 16:04 98.4 87 18 104/67 (79) 98 Room Air 06/09/17 09:10 98.2 75 18 115/70 (85) 100 Room Air I & O 06/10/17 07:00 Intake Total 9020 ml Output Total 6625 ml Balance 2395 ml Vital signs are stable. Patient is afebrile. monitor shows normal heart rate pattern with no contractions. Physical exam is benign. The abdomen is gravid and nontender. Extreme show no clubbing or cyanosis. There is no Homans sign. Assessment and plan hospital day 3 with a right ureteral stone and severe renal colic. IV fluids IV analgesia and IV antibiotics continue. If the stone is not passed spontaneously then Dr. Grande will be available to consult on the patient June 11, 2017 Patient is without complaint other than her continued right flank and right lower quadrant and pelvic pain. She has not as of yet passed a stone. She is ambulating, voiding, And tolerating by mouth. She denies contractions. Denies rupture membranes. She does have leg movement. Dr. Grande has seen this patient and plans operative management for her stone. Vital Signs Date Time Temp Pulse Resp B/P (MAP) Pulse Ox O2 Delivery O2 Flow Rate FiO2 06/11/17 00:00 98.7 77 18 106/59 (75) 97 Room Air 06/10/17 16:10 98.5 81 18 105/60 (75) 97 Room Air 06/10/17 09:38 98.2 77 18 106/65 (79) 99 Room Air I & O 06/11/17 07:00 Intake Total 7920 ml Output Total 7475 ml Balance 445 ml Shauna stable. Patient afebrile. Abdomen is benign. Patient is gravid. Extremities show no clubbing cyanosis. There is no Homans sign. Assessment and plan hospital day number 4 secondary to renal colic due to obstructed right ureter due to nephrolithiasis. Surgical management minute the hands of Dr. Grande is pending. An will be discharged home should her pain be completely resolved. Final Diagnosis Nephrolithiasis CHERRY LACEY MD Jun 11, 2017 7:57 am
--- NOTE | 2017-06-11 08:00 | Discharge Instructions ---
Discharge Instructions Discharge Medications New, Converted or Re-Newed RX: RX on Chart Patient Instructions Patient Instructions: As directed Return to The Hospital For: As directed Activity & Diet Discharge Diet: No Restrictions Activity as Tolerated: Yes Orders-Post D/C & Referrals Return to clinic as scheduled for return of the Follow-up with Dr. Phillips's instructions Continue vitamins Continue antibiotics after discharge only if prescribed by CHERRY Mckeon MD Jun 11, 2017 8:00 am
[2017-06-11] MEDS ORDERED: fentaNYL INJECTION 100 MCG/2 ML AMP ONE (08:20)
[2017-06-11] MEDS ORDERED: LACTATED RINGERS 1,000 ML IV PRN (08:24)
--- NOTE | 2017-06-11 08:32 | Progress Note-Pre Operative ---
Pre-Operative Progress Note H&P Reviewed The H&P was reviewed, patient examined and no changes noted. Date Seen by Provider: Jun 11, 2017 Time Seen by Provider: 08:32 Date H&P Reviewed: Jun 11, 2017 Time H&P Reviewed: 08:32 Pre-Operative Diagnosis: RT DISTAL URETERAL STONE ALEXANDRU QUACH MD Jun 11, 2017 8:32 am
--- NOTE | 2017-06-11 08:33 | Progress Note-Post Operative ---
Post-Operative Progess Note Surgeon (s)/Manager Club (s) Surgeon ALEXANDRU QUACH MD Manager Club: N/A Pre-Operative Diagnosis RT DISTAL URETERAL STONE Post-Operative Diagnosis SAME Procedure & Operative Findings Date of Procedure 06/11/17 Procedure Performed/Findings RT URETEROSCOPY WITH RETROGRADE UROGRAM Anesthesia Type SPINAL Estimated Blood Loss Estimated blood loss (mL): N/A Specimens/Packing Specimens Removed N/A Packing: N/A ALEXANDRU QUACH MD Jun 11, 2017 8:33 am
[2017-06-11] MEDS ORDERED: ONDANSETRON 4 MG/2 ML (SDV) Z0FRAN ONE (08:55)
[2017-06-11] MEDS ORDERED: diphenhydrAMINE 50 MG/ML INJ (BENADRYL) ONE (09:20)
[2017-06-11 10:23] VITALS: BP 114/62
--- NOTE | 2017-06-11 10:47 | Diagnostic Imaging Report ---
INDICATION: Fluoroscopy during right-sided ureteroscopy. FINDINGS: Fluoroscopy was provided during performance of a right-sided ureteroscopy. 10 seconds of fluoroscopic time was utilized. Images demonstrate injection of a small amount of contrast into the distal right ureter. No filling defects are seen. IMPRESSION: Fluoroscopy during performance of a ureteroscope. Dictated by: Dictated on workstation # [id number]
--- NOTE | 2017-06-11 14:25 | Anesthesia-Regional Post-Op ---
Regional Patient Condition Mental Status: Alert, Oriented x3 Circulation: Same as Pre-Op Headache: Absent Sensation: Full Recovery Motor Block: Absent Post Op Complications Complications None Follow Up Care/Instructions Patient Instructions None needed. Anesthesia/Patient Condition Patient was doing well after surgery and prior to discharge to home, no complaints, stable vital signs, no apparent adverse anesthesia problems. CASIMIRO ANDREWS DO Jun 11, 2017 14:25
--- NOTE | 2017-06-11 16:02 | OPERATIVE REPORT ---
DATE OF SERVICE: 06/11/2017 PREOPERATIVE DIAGNOSIS: Right distal ureteral stone. POSTOPERATIVE DIAGNOSIS: Right distal ureteral stone. OPERATION PERFORMED: Right ureteroscopy and retrograde urogram. SURGEON: Dagoberto Quach MD ANESTHESIA: Spinal. COMPLICATIONS: None. DESCRIPTION OF PROCEDURE: Under satisfactory spinal anesthesia, the patient in lithotomy position, genitalia were prepped and draped in usual sterile fashion. There was a little distal urethral stenosis that responded to the scope. A cystoscopy was performed and the only abnormality was the swelling and edema and redness of the intramural portion of the right ureter with sluggish efflux. The left side was clear. Using the foroblique lens, I dilated right ureteral orifice intramural portion with no problem to accommodate a 6.9-[place] semi-rigid ureteroscope, I went up all the way to the renal pelvis up and down. I did not see any stone. The only thing I could see is changes in the intramural portion from the presence of a stone that must have passed. I removed the ureteroscope, reinserted the cystoscope and performed a retrograde urogram that shows no filling defect, no dilatation of the ureter and complete emptying of the ureter on withdrawing the urethral catheter. I emptied the bladder, removed the cystoscope, performed again another ureteroscopy all the way up to the kidney up and down, antegrade and retrograde, there was no stone. The patient tolerated the procedure and anesthesia well and was sent to recovery room in stable condition. Job ID: [id number] DocumentID: [id number] Dictated Date: 06/11/2017 09:31:18 Forming Process Line Worker Date: 06/11/2017 16:01:57 Dictated By: DAGOBERTO QUACH MD
== END 2017-06-11 13:20 | disposition home or self-care (01) | DRG 781 ==
LOC: LDRP 11:33 → WSo 11:33 → LDRP 11:34 → OBSVTOIN 12:44 → UNDOADMOB 12:44 → INTOOBSV 12:44 → LDRP 12:44 → WSo 12:44 → EDSTATUS 06-11 09:00 → UNDODISIN 06-11 13:20
PROVIDERS: ADMIT Obstetrics & Gynecology; ATTEND Obstetrics & Gynecology
PROC: BT1D0ZZ Fluoroscopy of Right Kidney, Ureter and Bladder using High Osmolar Contrast (ICD-10-PCS; 2017-06-11)
PROC: 0TJ98ZZ Inspection of Ureter, Via Natural or Artificial Opening Endoscopic (ICD-10-PCS; principal; 2017-06-11 08:33)
DX: O26.833 Pregnancy related renal disease, third trimester (principal); N13.2 Hydronephrosis with renal and ureteral calculous obstruction; Z3A.28 28 weeks gestation of pregnancy
CPT/HCPCS: 36415; 74176; 76770; 80053; 81000; 85025; 85027; 87088

== ENCOUNTER → 2017-06-07 | Outpatient (CLI) | payer BC | LOC: WSo 08:59 | PROVIDERS: ATTEND Obstetrics & Gynecology | DX: Z31.82 Encounter for Rh incompatibility status (principal) | CPT/HCPCS: 96372 ==

== ENCOUNTER 2017-06-15 10:43 | Emergency (ER) | payer BC ==
[~2017-06-15] VITALS: Ht 165.1 cm; Wt 71.2 kg
--- NOTE | 2017-06-15 10:59 | ED Headache ---
General Stated Complaint: BLOOD PATCH Source: patient Exam Limitations: no limitations History of Present Illness Date Seen by Provider: Jun 15, 2017 Time Seen by Provider: 10:58 Initial Comments To ER with a global headache since Sunday afternoon. Headache is worse when she is upright, better when she is laying flat. However it does not completely go away when she lies flat. She is 29 weeks gestation. On Sunday of this week just before the headache began she had a spinal anesthesia done for ureteroscopy by Dr. Gonzalez here. She has been taking Tylenol at home without relief. Timing/Duration: 1 week Severity/Quality: moderate Location: global Associated Symptoms: denies symptoms Allergies and Home Medications Allergies Coded Allergies: No Known Drug Allergies (Unverified , 04/30/15) Home Medications Butalb/Acetaminophen/Caffeine 1 Each Capsule, 1 EACH PO PRN Prescribed by: ALIA COTTO on 06/15/17 1202 Cefuroxime Axetil 250 Mg Tablet, 250 MG PO BID Prescribed by: ALIA COTTO on 06/15/17 1202 Patient Home Medication List Home Medication List Reviewed: Yes Constitutional: see HPI Eyes: No Symptoms Reported Ears, Nose, Mouth, Throat: no symptoms reported Respiratory: no symptoms reported Cardiovascular: no symptoms reported Genitourinary: no symptoms reported Musculoskeletal: see HPI Skin: no symptoms reported Psychiatric/Neurological: No Symptoms Reported Past Vkhrvmu-Xjfngb-Nufnyu Hx Patient Social History Recent Foreign Travel: No Contact w/Someone Who Travel: No Immunizations Up To Date Tetanus Booster (TDap): Unknown PED Vaccines UTD: No Seasonal Allergies Seasonal Allergies: No Surgeries History of Surgeries: Yes (left knee) Respiratory History of Respiratory Disorde: No Cardiovascular History of Cardiac Disorders: No Neurological History of Neurological Disord: No Reproductive System Hx Reproductive Disorders: No Female Reproductive Disorders: Denies Gastrointestinal History of Gastrointestinal Di: Yes Gastrointestinal Disorders: Gastroesophageal Reflux Musculoskeletal History of Musculoskeletal Dis: No Endocrine History of Endocrine Disorders: No Cancer History of Cancer: No Psychosocial History of Psychiatric Problem: No Integumentary History of Skin or Integumenta: No Blood Transfusions History of Blood Disorders: No Family Medical History Significant Family History: No Pertinent Family Hx Family Medial History: Alzheimer's disease 19 MOTHER (grandfather) Completed stroke 19 FATHER (grandfather) Diabetes mellitus 19 FATHER (grandparent) 19 MOTHER (maternal grandparent) Hypertension 19 MOTHER (mother) Non-Hodgkin's lymphoma Respiratory disorder 19 MOTHER (copd grandmother) Physical Exam Vital Signs Vital Signs - First Documented 06/15/17 10:50 Temp 97.0 Pulse 83 Resp 18 B/P (MAP) 115/74 (88) Pulse Ox 100 Capillary Refill : General Appearance: WD/WN, no apparent distress HEENT: PERRL/EOMI, normal ENT inspection Neck: non-tender, full range of motion Respiratory: no respiratory distress, no accessory muscle use Gastrointestinal: normal bowel sounds, non tender Extremities: normal range of motion, non-tender Psychiatric: alert, oriented x 3 Crainal Nerves: normal hearing, normal speech, PERRL Motor/Sensory: no motor deficit, no sensory deficit Skin: normal color, warm/dry Progress/Results/Core Measures Results/Orders Lab Results Laboratory Tests Test 06/15/17 10:55 06/15/17 11:10 Range/Units Urine Color YELLOW Urine Clarity CLEAR Urine pH 5 5-9 Urine Specific [place] 1.020 1.016-1.022 Urine Protein 1+ H NEGATIVE Urine Glucose (UA) NEGATIVE NEGATIVE Urine Ketones NEGATIVE NEGATIVE Urine Nitrite NEGATIVE NEGATIVE Urine Bilirubin NEGATIVE NEGATIVE Urine Urobilinogen NORMAL NORMAL MG/DL Urine Leukocyte Esterase 3+ H NEGATIVE Urine RBC (Auto) 3+ H NEGATIVE Urine RBC 5-10 H /HPF Urine WBC 25-50 H /HPF Urine Squamous Epithelial Cells >50 H /HPF Urine Crystals NONE /LPF Urine Bacteria LARGE H /HPF Urine Casts NONE /LPF Urine Mucus LARGE H /LPF Urine Culture Indicated YES White Blood Count 9.5 4.3-11.0 10^3/uL Red Blood Count 3.59 L 4.35-5.85 10^6/uL Hemoglobin 11.5 11.5-16.0 G/DL Hematocrit 32 L 35-52 % Mean Corpuscular Volume 90 80-99 FL Mean Corpuscular Hemoglobin 32 25-34 PG Mean Corpuscular Hemoglobin Concent 36 32-36 G/DL Red Cell Distribution Width 12.9 10.0-14.5 % Platelet Count 205 130-400 10^3/uL Mean Platelet Volume 9.8 7.4-10.4 FL Neutrophils (%) (Auto) 68 42-75 % Lymphocytes (%) (Auto) 25 12-44 % Monocytes (%) (Auto) 6 0-12 % Eosinophils (%) (Auto) 1 0-10 % Basophils (%) (Auto) 0 0-10 % Neutrophils # (Auto) 6.5 1.8-7.8 X 10^3 Lymphocytes # (Auto) 2.4 1.0-4.0 X 10^3 Monocytes # (Auto) 0.5 0.0-1.0 X 10^3 Eosinophils # (Auto) 0.1 0.0-0.3 10^3/uL Basophils # (Auto) 0.0 0.0-0.1 10^3/uL Sodium Level 136 135-145 MMOL/L Potassium Level 3.6 3.6-5.0 MMOL/L Chloride Level 109 H 98-107 MMOL/L Carbon Dioxide Level 21 21-32 MMOL/L Anion Gap 6 5-14 MMOL/L Blood Urea Nitrogen 11 7-18 MG/DL Creatinine 0.58 L 0.60-1.30 MG/DL Estimat Glomerular Filtration Rate > 60 BUN/Creatinine Ratio 19 Glucose Level 76 70-105 MG/DL Calcium Level 8.5 8.5-10.1 MG/DL Total Bilirubin 0.8 0.1-1.0 MG/DL Aspartate Amino Transf (AST/SGOT) 13 5-34 U/L Alanine Aminotransferase (ALT/SGPT) 19 0-55 U/L Alkaline Phosphatase 63 40-136 U/L Total Protein 6.7 6.4-8.2 GM/DL Albumin 3.5 3.2-4.5 GM/DL Micro Results Microbiology 06/15/17 Urine Culture - Final, Complete My Orders Orders - ALIA COTTO APRN Saline Lock/Iv-Start (06/15/17 11:02) Cbc With Automated Diff (06/15/17 11:02) Comprehensive Metabolic Panel (06/15/17 11:02) Ua Culture If Indicated (06/15/17 11:02) Ns Iv 1000 Ml (Sodium Chloride 0.9%) (06/15/17 11:15) Butalbital/Apap/Caffeine Tab (Fioricet T (06/15/17 11:15) Urine Culture (06/15/17 10:55) Ceftriaxone Injection (Rocephin Injectio (06/15/17 11:45) Medications Given in ED Vital Signs/I&O Vital Sign - Last 12Hours 06/15/17 06/15/17 10:50 12:12 Temp 97.0 97.0 Pulse 83 83 Resp 18 18 B/P (MAP) 115/74 (88) 115/74 (88) Pulse Ox 100 100 Progress Note : Time: 11:18 Progress Note Ruth Portillo SECURITY EXPERT here to see patient at this time. She she stated that the timing of the epidural and the headache is too far out and blood patch would likely not improve symptoms. She stated that conservative therapy would be the best option. 1145- Patient's headache has improved after the Fioricet. Patient has been informed of planes for discharge and her diagnosis of a urinary tract infection. Departure Impression Impression: Primary Impression: UTI (urinary tract infection) Additional Impression: Headache Disposition: HOME, SELF-CARE Condition: Stable/Unchanged Departure-Patient Inst. Referrals: ANEUDY GALEAS MD (PCP/Family) Primary Care Physician Patient Instructions: Headache, Adult (DC), Urinary Tract Infection, Adult (DC) Add. Discharge Instructions: Take medications as directed, returning back here for worsening headaches, nausea, vomiting. 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 Scripts Cefuroxime Axetil (Cefuroxime) 250 Mg Tablet 250 MG PO BID for 7 Days, #14 TAB Prov: ALIA COTTO APRN 06/15/17 Butalb/Acetaminophen/Caffeine (Zbkmvd-Djxxxiim-Aimo 50-300-40) 1 Each Capsule 1 EACH PO PRN, #10 CAP Prov: ALIA COTTO APRN 06/15/17 ALIA COTTO APRN Jun 15, 2017 10:59
[2017-06-15 11:09] LABS: BILIRUBIN,URINE NEGATIVE (NEGATIVE); CLARITY,URINE CLEAR; COLOR,URINE YELLOW; GLUCOSE, URINE (UA) NEGATIVE (NEGATIVE); KETONES,URINE NEGATIVE (NEGATIVE); LEUKOCYTE ESTERASE ,URINE 3+ (NEGATIVE); NITRITE,URINE NEGATIVE (NEGATIVE); PH,URINE 5 (5-9); PROTEIN,URINE 1+ (NEGATIVE); UROBILINOGEN,URINE NORMAL (NORMAL)
[2017-06-15] MEDS ORDERED: NS IV 1000 ML 1,000 ML IV SCH (11:15)
[2017-06-15 11:16] LABS: BASOPHILS % (AUTO) 0 % (0-10); EOSINOPHILS # (AUTO) 0.1 10^3/uL (0.0-0.3); EOSINOPHILS % (AUTO) 1 % (0-10); HEMATOCRIT 32 % (35-52); HEMOGLOBIN 11.5 G/DL (11.5-16.0); LYMPHOCYTES # (AUTO) 2.4 X 10^3 (1.0-4.0); LYMPHOCYTES % (AUTO) 25 % (12-44); MEAN CORPUSCULAR HEMOGLOBIN 32 PG (25-34); MEAN CORPUSCULAR HGB CONC 36 G/DL (32-36); MEAN CORPUSCULAR VOLUME 90 FL (80-99); MEAN PLATELET VOLUME 9.8 FL (7.4-10.4); MONOCYTES # (AUTO) 0.5 X 10^3 (0.0-1.0); MONOCYTES % (AUTO) 6 % (0-12); NEUTROPHILS # (AUTO) 6.5 X 10^3 (1.8-7.8); NEUTROPHILS % (AUTO) 68 % (42-75); PLATELET COUNT 205 10^3/uL (130-400); RED BLOOD COUNT 3.59 10^6/uL (4.35-5.85); RED CELL DISTRIBUTION WIDTH 12.9 % (10.0-14.5); WHITE BLOOD COUNT 9.5 10^3/uL (4.3-11.0)
[2017-06-15] MEDS: ACET/BUTAL/CAFF (FIORICET) TAB PO PRN ×2 (11:22→11:25)
[2017-06-15 11:28] LABS: WBC,URINE 25-50 /HPF
[2017-06-15 11:29] LABS: BACTERIA,URINE LARGE /HPF; SQUAMOUS EPITHELIAL CELL,UR >50 /HPF
[2017-06-15 11:32] LABS: ALANINE AMINOTRANSFERASE 19 U/L (0-55); ALBUMIN 3.5 GM/DL (3.2-4.5); ALKALINE PHOSPHATASE 63 U/L (40-136); BILIRUBIN,TOTAL 0.8 MG/DL (0.1-1.0); BUN/CREATININE RATIO 19; CALCIUM 8.5 MG/DL (8.5-10.1); CARBON DIOXIDE 21 MMOL/L (21-32); CHLORIDE 109 MMOL/L (98-107); CREATININE SERUM 0.58 MG/DL (0.60-1.30); GFR ESTIMATED > 60; GLUCOSE 76 MG/DL (70-105); POTASSIUM 3.6 MMOL/L (3.6-5.0); SODIUM 136 MMOL/L (135-145); TOTAL PROTEIN 6.7 GM/DL (6.4-8.2)
--- NOTE | 2017-06-15 11:40 | Anesthesia-Procedure Note ---
Procedure Start/Stop Time Date of Procedure: Jun 15, 2017 Start Time: 11:25 Stop Time: 11:30 Procedures/Interventions Procedures Called to ER to evaluate patient for epidural blood patch due to complaints of headache while upright. Pt sitting up on ER cart upon arrival, no apparent distress upon assessment. Spoke with [place] who did pt's SAB on Sunday. 25G Pencan used x 1 attempt with no issues. Discussed blood patch and additional risks involved with procedure. Encouraged patient to continue with conservative measures and to follow up with us if continued symptoms, as she is now 5 days post surgical. Informed patient that we will be available at any time for further evaluation. Pt in agreement. ELVIS HONG CRNA Jun 15, 2017 11:40
[2017-06-15] MEDS ORDERED: cefTRIAXone INJECTION 1,000 MG in NS (IVPB) 100 ML IV ONE (11:45)
[2017-06-15] MEDS ORDERED: CEFU250T80 PO (12:02)
[2017-06-15] MEDS ORDERED: BUTA1CAP41 PO (12:02)
[2017-06-15 12:12] VITALS: BP 115/74
== END 2017-06-15 12:14 | disposition home or self-care (01) ==
LOC: EDUNIT# 10:43 → ER 10:45
DX: O23.43 Unspecified infection of urinary tract in pregnancy, third trimester (principal); O99.89 Other specified diseases and conditions complicating pregnancy, childbirth and the puerperium; R51 Headache; O99.613 Diseases of the digestive system complicating pregnancy, third trimester; K21.9 Gastro-esophageal reflux disease without esophagitis; Z3A.29 29 weeks gestation of pregnancy
CPT/HCPCS: 36415; 80053; 81000; 85025; 87088

== ENCOUNTER 2017-07-18 13:48 | Outpatient (CLI) | payer BC ==
[~2017-07-18] VITALS: Ht 165.1 cm; Wt 74.4 kg
[~2017-07-18 13:48] MED LIST changes: +BUTA1CAP41 PO; +CEFU250T80 PO
[2017-07-18 13:57] VITALS: BP 108/63
[2017-07-18] MEDS ORDERED: PREN-37 PO (14:01)
--- NOTE | 2017-07-19 16:57 | Physician Query-Final Dx ---
JAIME BURRELL 07/19/17 1656: Clinic Account Progress/Dx Physician Query: Please give diagnosis Date of Service Jul 18, 2017 at 13:48 CHERRY LACEY MD 07/20/17 0753: Clinic Account Progress/Dx DIAGNOSIS: Diagnosis Decreased movement JAIME BURRELL Jul 19, 2017 16:56 CHERRY LACEY MD Jul 20, 2017 07:53
== END 2017-07-18 14:40 | disposition home or self-care (01) ==
LOC: WSo 13:48 → LDRP 13:48 → WSo 14:40
PROVIDERS: ATTEND Obstetrics & Gynecology
DX: O36.8130 Decreased fetal movements, third trimester, not applicable or unspecified (principal); Z3A.39 39 weeks gestation of pregnancy
CPT/HCPCS: 99212

== ENCOUNTER 2017-07-31 15:25 | Outpatient (CLI) | payer BC ==
[~2017-07-31] VITALS: Ht 165.1 cm; Wt 75.7 kg
[2017-07-31 15:25] VITALS: BP 125/76
[~2017-07-31 15:25] MED LIST changes: +PREN-37 PO
[2017-07-31 16:00] VITALS: BP 111/58
[2017-07-31 16:12] LABS: BILIRUBIN,URINE NEGATIVE (NEGATIVE); CLARITY,URINE CLEAR; COLOR,URINE YELLOW; GLUCOSE, URINE (UA) NEGATIVE (NEGATIVE); KETONES,URINE NEGATIVE (NEGATIVE); LEUKOCYTE ESTERASE ,URINE 2+ (NEGATIVE); NITRITE,URINE NEGATIVE (NEGATIVE); PH,URINE 6 (5-9); PROTEIN,URINE NEGATIVE (NEGATIVE); UROBILINOGEN,URINE NORMAL (NORMAL)
[2017-07-31 16:25] VITALS: BP 96/50
[2017-07-31 16:34] LABS: BACTERIA,URINE FEW /HPF; RBC,URINE RARE /HPF
--- NOTE | 2017-08-01 14:26 | Physician Query-Final Dx ---
JAIME BURRELL 08/01/17 1426: Clinic Account Progress/Dx Physician Query: Please give diagnosis Date of Service Jul 31, 2017 at 15:25 CHERRY LACEY MD 08/02/17 1146: Clinic Account Progress/Dx DIAGNOSIS: Diagnosis False labor JAIME BURRELL Aug 01, 2017 14:26 CHERRY LACEY MD Aug 02, 2017 11:46
[2017-08-11] MEDS ORDERED: OXYC-465 PO (09:19)
[2017-08-11] MEDS ORDERED: DOCU100C37 PO (09:19)
[2017-08-11] MEDS ORDERED: IBUP-1780 PO (09:19)
== END 2017-07-31 16:50 | disposition home or self-care (01) ==
LOC: WSo 15:25 → LDRP 15:25 → WSo 16:50
PROVIDERS: ATTEND Obstetrics & Gynecology
DX: O47.03 False labor before 37 completed weeks of gestation, third trimester (principal); Z3A.36 36 weeks gestation of pregnancy
CPT/HCPCS: 81000; 87088; 99213

== ENCOUNTER 2017-08-10 09:45 | Inpatient (IN) | payer BC ==
[2017-08-10] VITALS (58 sets, daily range): BP systolic 95–134; BP diastolic 43–78
[~2017-08-10] VITALS: Ht 165.1 cm; Wt 78.2 kg
[2017-08-10] MEDS ORDERED: MINERAL OIL CONCENTRATE 99.9% 15 ML UDC TOP PRN (10:15)
[2017-08-10] MEDS: D5 LR IV SOLUTION 1,000 ML IV SCH ×3 (10:40→18:16)
[2017-08-10 10:56] LABS: BASOPHILS % (AUTO) 0 % (0-10); EOSINOPHILS # (AUTO) 0.1 10^3/uL (0.0-0.3); EOSINOPHILS % (AUTO) 1 % (0-10); HEMATOCRIT 33 % (35-52); HEMOGLOBIN 11.3 G/DL (11.5-16.0); LYMPHOCYTES # (AUTO) 2.1 X 10^3 (1.0-4.0); LYMPHOCYTES % (AUTO) 18 % (12-44); MEAN CORPUSCULAR HEMOGLOBIN 31 PG (25-34); MEAN CORPUSCULAR HGB CONC 34 G/DL (32-36); MEAN CORPUSCULAR VOLUME 90 FL (80-99); MEAN PLATELET VOLUME 10.2 FL (7.4-10.4); MONOCYTES # (AUTO) 0.7 X 10^3 (0.0-1.0); MONOCYTES % (AUTO) 7 % (0-12); NEUTROPHILS # (AUTO) 8.4 X 10^3 (1.8-7.8); NEUTROPHILS % (AUTO) 74 % (42-75); PLATELET COUNT 188 10^3/uL (130-400); RED BLOOD COUNT 3.67 10^6/uL (4.35-5.85); RED CELL DISTRIBUTION WIDTH 13.7 % (10.0-14.5); WHITE BLOOD COUNT 11.3 10^3/uL (4.3-11.0)
[2017-08-10] MEDS ORDERED: SUFENTA 0.6MCG/ML BUPIVA 0.125 100 ML ONE (11:06)
[2017-08-10] MEDS ORDERED: fentaNYL INJECTION 100 MCG/2 ML AMP ONE (11:45)
--- NOTE | 2017-08-10 11:58 | History & Physical ---
History and Physical Date Seen by Provider: August 10, 2017 Time Seen by Provider: 11:54 This patient is a 21-year-old female seen in my clinic on this date. She is being followed for decreasing MIHIR and today with increasing concern for rupture membranes duration. Nitrazine was positive. MIHIR has decreased this week from previous check with an MIHIR of 70+2 now 52 patient was having occasional contractions. Patient is admitted for IV antibiotics and for labor management with the intent for vaginal delivery due to rupture membranes of unsure duration. Patient's is otherwise been uncomplicated. Her GBS culture was negative. Patient reports increased vaginal wetness and discharge over the last few days versus the rest of her Allergies are none Locations are vitamins Past medical history surgical history obstetric family social histories are per the antepartum record HEENT exam is normal Neck is supple no lymphadenopathy no thyromegaly Abdomen is gravid soft nontender nondistended Extreme show clubbing cyanosis. There is no Homans sign. Pelvic exam in clinic reveals cervix is between 2 and 3 similar dilated 50-70 percent effaced and 0 to -1 station soft mid to slightly posterior. Nitrazine performed with a dry glove exam was positive. Assessment and plan 37+ week with likely with rupture membranes of unknown duration. Patient is admitted now for delivery under the cover of lactic antibiotics. We use Ancef as her GBS culture was negative we still 1 Gen. coverage due to the unknown duration of the rupture membranes. Allergies and Home Medications Allergies Coded Allergies: No Known Drug Allergies (Unverified , 04/30/15) Home Medications Vit/Iron Fumarate/FA 1 Each Tablet, 1 EACH PO DAILY, (Reported) Patient Home Medication List Home Medication List Reviewed: No Clinical Quality Measures DVT/VTE Risk/Contraindication: Risk Factor Score Per Nursin RFS Level Per Nursing on Admit: 1=Low/No VTE PPX CHERRY LACEY MD August 10, 2017 11:57 am
[2017-08-10] MEDS ORDERED: OXYTOCIN/NORMAL SALINE 500 ML IV SCH ×2 (11:59→16:11)
[2017-08-10] MEDS ORDERED: BENZOCAINE/MENTHOL (DERMOPLAST) 56 ML CAN TP PRN (12:00)
[2017-08-10] MEDS ORDERED: ONDANSETRON 4 MG/2 ML (SDV) Z0FRAN IVP PRN (12:00)
[2017-08-10] MEDS ORDERED: oxyCODONE/APAP 10/325MG (PERCOCET 10) TABLET PO PRN (12:00)
[2017-08-10] MEDS ORDERED: TETANUS,DIPTH,PERTUSS P/F (BOOSTRIX) 0.5 ML VIAL IM ONE (12:00)
[2017-08-10] MEDS: KETOROLAC 30 MG/ML VIAL IV SCH (12:06)
[2017-08-10] MEDS: EPIDURAL (SUFENTA 0.6MCG/ML BUPIVA 0.125%) 100 ML BAG EPI PRN ×2 (12:21→19:39)
[2017-08-10] MEDS: ceFAZolin 2 GM IV Premixed 50 ML IV SCH ×2 (12:37→18:25)
[2017-08-10] MEDS ORDERED: CATHETER FLUSH 10 ML SYR IV SCH (14:00)
[2017-08-10] MEDS ORDERED: LACTATED RINGERS 1,000 ML IV ONE (14:29)
[2017-08-10] MEDS ORDERED: ONDANSETRON 4 MG/2 ML (SDV) Z0FRAN IV PRN (14:30)
[2017-08-10] MEDS ORDERED: METOCLOPRAMIDE INJ 10 MG/2 ML (REGLAN) IV PRN (14:30)
[2017-08-10] MEDS ORDERED: diphenhydrAMINE 50 MG/ML INJ (BENADRYL) IV PRN (14:30)
[2017-08-10] MEDS ORDERED: NALOXONE 0.4 MG/ML 1 ML (NARCAN) VIAL IV PRN ×2 (14:30)
[2017-08-10] MEDS ORDERED: CITRIC ACID/SOB CIT (BICITRA) 30 ML UDC ONE (19:34)
[2017-08-11] VITALS (21 sets, daily range): BP systolic 92–172; BP diastolic 51–85
[2017-08-11] MEDS: ceFAZolin 2 GM IV Premixed 50 ML IV SCH (00:24)
[2017-08-11] MEDS: D5 LR IV SOLUTION 1,000 ML IV SCH (00:24)
[2017-08-11] MEDS: EPIDURAL (SUFENTA 0.6MCG/ML BUPIVA 0.125%) 100 ML BAG EPI PRN (00:25)
--- NOTE | 2017-08-11 03:08 | OB Labor & Delivery Record ---
Labor & Delivery This patient delivered by term spontaneous vaginal delivery a viable male with Apgars of 8 and 9 at one and 5 minutes respectively and weight of 5 lbs. 9 oz. Cord arterial blood gases are pending. time was 137. The delivery was unattended. L&D nurse had performed cervical exam at 0117 and reports that the presenting part was at the minus 2 station with cervix 7 cm dilated. Repeat exam at 013 by the same nurse showed a cervix almost completely dilated except for a small anterior rim with the vertex presenting part still at the minus 2 station. Patient was feeling some pressure at that point and the nurse called and apprised me of this exam. I proceeded promptly to the hospital. The nurse reports that very shortly after that exam the patient complained of dramatically increased pain and pressure then began thrashing about and pushing in an [id number] manner. The patient was unable to comply with the nursing instructions to relax and breathe, rather than push. Promptly at 0138 the delivered uncontrolled onto the bed with the labor and delivery nurse at bedside. On my arrival at 013 the umbilical cord had been clamped and the baby placed on mother's abdomen. Baby was just under 1 minute of age at that point. was breathing and crying appropriately, was pink, moving all extremities , and appeared stable at that point. I doubly clamped the umbilical cord and allowed father to cut the cord. The baby remained on mother's abdomen. Assessment of the vagina and perineum revealed a large clot in the vaginal vault , with the placenta already completely detached and filling the vaginal vault. There was a small posterior fourchette laceration with bilateral periurethral abrasions. Cord bloods were obtained and then the placenta was removed from the vagina. The placenta delivered Lopez and was accompanied by a very large clot. This presentation is suspicious for a spontaneous placental abruption. The cervix, vagina, perineum, posterior fourchette, and anus were examined and found intact except for the first-degree perineal/posterior fourchette laceration and superficial periurethral abrasions. The posterior fourchette and perineum were infiltrated with 1 percent lidocaine with epinephrine to allow for repair of the laceration with a single suture of 3 -0 Vicryl Rapide. Patient tolerated the delivery and the repair well. Sponge and needle counts were correct on completion of the delivery and repair. Estimated blood loss was 300 mL. The patient was recovered in the LDR in the baby remained with the mother. CHERRY LACEY MD August 11, 2017 3:08 am
[2017-08-11] MEDS ORDERED: WITCH HAZEL(TUCKS) 40 EA JAR ONE (04:05)
[2017-08-11] MEDS: KETOROLAC 30 MG/ML VIAL IV SCH ×2 (04:10→12:44)
[2017-08-11] MEDS ORDERED: WITCH HAZEL(TUCKS) 40 EA JAR TOP PRN (05:15)
--- NOTE | 2017-08-11 09:16 | Progress Note-Standard ---
Standard Progress Note Progress Notes/Assess & Plan Date Seen by Provider: August 11, 2017 Time Seen by Provider: 09:15 Progress/Assessment & Plan Patient is without complaint. She is ambulating and voiding. She has good pain control. She is convalescing from a precipitous vaginal delivery in the early hours of this morning. Vital Signs Date Time Temp Pulse Resp B/P (MAP) Pulse Ox O2 Delivery O2 Flow Rate FiO2 08/11/17 06:00 98.3 79 18 92/51 (65) 97 Room Air 08/11/17 03:55 106 18 101/62 (75) Room Air 08/11/17 03:40 90 18 99/56 (70) Room Air 08/11/17 03:25 98.4 100 18 103/57 (72) Room Air 08/11/17 03:10 98.2 110 18 113/59 (77) Room Air 08/11/17 02:55 99.8 102 18 119/55 (76) Room Air 08/11/17 02:40 99.3 93 18 112/56 (74) Room Air 08/11/17 02:25 99.5 83 18 112/57 (75) Room Air 08/11/17 02:10 80 18 123/60 (81) Room Air 08/11/17 01:55 66 18 138/66 (90) Room Air 08/11/17 01:38 76 18 172/85 (114) 96 Room Air 08/11/17 01:30 68 18 99 Room Air 08/11/17 01:15 71 18 113/69 (84) 99 Room Air 08/11/17 01:00 69 18 111/64 (80) 98 Room Air 08/11/17 00:45 81 18 113/74 (87) 98 Room Air 08/11/17 00:30 76 18 125/68 (87) 98 Room Air 08/11/17 00:15 63 18 119/70 (86) 98 Room Air 08/11/17 00:00 73 18 116/68 (84) 98 Room Air 08/10/17 23:45 72 18 112/65 (81) 98 Room Air 08/10/17 23:30 82 18 113/54 (73) 98 Room Air 08/10/17 23:15 72 18 105/56 (72) 98 Room Air 08/10/17 23:00 71 18 106/65 (79) 98 Room Air 08/10/17 22:45 90 18 112/73 (86) 98 Room Air 08/10/17 22:30 76 18 117/69 (85) 97 Room Air 08/10/17 22:15 75 18 114/43 (66) 98 Room Air 08/10/17 22:00 99.6 70 18 112/67 (82) 98 Room Air 08/10/17 21:45 69 18 115/76 (89) 99 Room Air 08/10/17 21:30 77 18 128/61 (83) 99 Room Air 08/10/17 21:15 64 18 134/55 (81) 98 Room Air 08/10/17 21:00 71 18 113/64 (80) 98 Non Rebreather 15.00 08/10/17 20:45 80 18 115/78 (90) 98 Non Rebreather 15.00 08/10/17 20:30 67 18 108/61 (77) 99 Non Rebreather 15.00 08/10/17 20:15 68 18 109/65 (80) 100 Non Rebreather 15.00 08/10/17 20:00 72 18 122/68 (86) 100 Non Rebreather 15.00 08/10/17 19:45 98.4 66 18 118/70 (86) 99 Non Rebreather 15.00 08/10/17 19:30 83 18 119/71 (87) 99 Non Rebreather 15.00 08/10/17 19:15 71 18 103/60 (74) 99 Non Rebreather 15.00 08/10/17 18:45 98.1 66 20 109/65 (80) 99 Room Air 08/10/17 18:30 66 20 116/72 (87) 100 Room Air 08/10/17 18:15 79 20 106/58 (74) 97 Room Air 08/10/17 18:00 79 20 106/58 (74) 97 Room Air 08/10/17 17:45 69 20 108/54 (72) 97 Room Air 08/10/17 17:30 72 20 129/77 (94) 98 Room Air 08/10/17 17:15 66 20 102/58 (73) 98 Room Air 08/10/17 17:00 68 20 95/56 (69) 97 Room Air 5/4/18 16:45 76 20 99/59 (72) 97 Room Air 5//18 16:30 75 20 107/57 (74) 98 Room Air 518 16:15 67 20 117/72 (87) 99 Room Air 5/18 16:00 75 20 106/64 (78) 98 Room Air 5//18 15:45 79 20 103/64 (77) 98 Room Air 518 15:30 92 100/61 (74) 98 5//18 15:15 70 102/63 (76) 98 5//18 15:00 67 110/59 (76) 99 5//18 14:45 70 117/68 (84) 99 518 14:30 98.7 69 104/57 (73) 99 5/18 14:15 79 116/69 (85) 98 5//18 14:00 87 18 110/66 (81) 98 5//18 13:45 76 111/58 (75) 98 5/18 13:30 90 99/53 (68) 98 5//18 13:15 86 97 518 13:10 77 99/55 (70) 98 5//18 13:05 83 103/55 (71) 97 5//18 13:00 99.0 75 18 104/64 (77) 98 5/18 12:55 100 98 5//18 12:50 81 104/56 (72) 97 5//18 12:45 78 109/65 (80) 98 5//18 12:40 82 103/54 (70) 97 5//18 12:35 78 113/70 (84) 99 5/4/18 12:30 85 106/60 (75) 100 5/4/18 12:25 80 117/68 (84) 100 5/4/18 12:20 84 110/63 (79) 100 5/4/18 12:15 80 18 111/65 (80) 99 5/4/18 12:10 78 102/58 (73) 100 5//18 12:05 73 117/69 (85) 100 5//18 12:00 98.4 77 18 115/62 (79) 100 5/4/18 11:40 157 113/70 (84) 5/4/18 11:10 78 99/61 (74) 08/10/17 10:10 98.9 64 18 114/67 (83) I & O 08/11/17 07:00 Intake Total 1000 ml Balance 1000 ml Vital signs are stable. Patient is afebrile. Fundus is firm below the umbilicus and nontender. Extremities show clubbing cyanosis. There is no Homans sign. There is minimal pretibial pitting edema. Assessment and plan status post term spontaneous vaginal delivery early this morning. Plan is for routine convalescence. CHERRY LACEY MD August 11, 2017 9:16 am
[2017-08-11] MEDS ORDERED: IBUP-1780 PO (09:19)
[2017-08-11] MEDS ORDERED: DOCU100C37 PO (09:19)
[2017-08-11] MEDS ORDERED: OXYC-465 PO (09:19)
--- NOTE | 2017-08-11 09:21 | Discharge Instructions ---
Discharge Instructions Discharge Medications New, Converted or Re-Newed RX: RX on Chart Patient Instructions Patient Instructions: As directed Return to The Hospital For: As directed Activity & Diet Discharge Diet: No Restrictions Activity as Tolerated: No Orders-Post D/C & Referrals Follow Up Appt: Call to make follow up appt. for patient in 4 weeks. Activity Per routine post vaginal delivery instructions. Please call in RX to patient pharmacy. Diet as tolerated Patient may shower or tub bathe as desired. CHERRY LACEY MD August 11, 2017 9:21 am
[2017-08-11] MEDS ORDERED: TETANUS,DIPTH,PERTUSS P/F (BOOSTRIX) 0.5 ML VIAL IM ONE (10:16)
[2017-08-11] MEDS: DOCUSATE SODIUM 100 MG (COLACE) CAP PO SCH ×3 (10:25→22:03)
[2017-08-11] MEDS: IBUPROFEN 800 MG (MOTRIN) TAB PO SCH ×3 (10:26→22:03)
[2017-08-12] MEDS: IBUPROFEN 800 MG (MOTRIN) TAB PO SCH ×4 (04:14→22:22)
[2017-08-12 04:15] VITALS: BP 102/59
--- NOTE | 2017-08-12 08:36 | Progress Note-Standard ---
Standard Progress Note Progress Notes/Assess & Plan Date Seen by Provider: August 12, 2017 Time Seen by Provider: 08:34 Progress/Assessment & Plan Patient is without complaint. She is ambulating and voiding. She has good pain control. She is convalescing from a precipitous vaginal delivery in the early hours of this morning. Vital Signs Date Time Temp Pulse Resp B/P (MAP) Pulse Ox O2 Delivery O2 Flow Rate FiO2 08/11/17 06:00 98.3 79 18 92/51 (65) 97 Room Air 08/11/17 03:55 106 18 101/62 (75) Room Air 08/11/17 03:40 90 18 99/56 (70) Room Air 08/11/17 03:25 98.4 100 18 103/57 (72) Room Air 08/11/17 03:10 98.2 110 18 113/59 (77) Room Air 08/11/17 02:55 99.8 102 18 119/55 (76) Room Air 08/11/17 02:40 99.3 93 18 112/56 (74) Room Air 08/11/17 02:25 99.5 83 18 112/57 (75) Room Air 08/11/17 02:10 80 18 123/60 (81) Room Air 08/11/17 01:55 66 18 138/66 (90) Room Air 08/11/17 01:38 76 18 172/85 (114) 96 Room Air 08/11/17 01:30 68 18 99 Room Air 08/11/17 01:15 71 18 113/69 (84) 99 Room Air 08/11/17 01:00 69 18 111/64 (80) 98 Room Air 08/11/17 00:45 81 18 113/74 (87) 98 Room Air 08/11/17 00:30 76 18 125/68 (87) 98 Room Air 08/11/17 00:15 63 18 119/70 (86) 98 Room Air 08/11/17 00:00 73 18 116/68 (84) 98 Room Air 08/10/17 23:45 72 18 112/65 (81) 98 Room Air 08/10/17 23:30 82 18 113/54 (73) 98 Room Air 08/10/17 23:15 72 18 105/56 (72) 98 Room Air 08/10/17 23:00 71 18 106/65 (79) 98 Room Air 08/10/17 22:45 90 18 112/73 (86) 98 Room Air 08/10/17 22:30 76 18 117/69 (85) 97 Room Air 08/10/17 22:15 75 18 114/43 (66) 98 Room Air 08/10/17 22:00 99.6 70 18 112/67 (82) 98 Room Air 08/10/17 21:45 69 18 115/76 (89) 99 Room Air 08/10/17 21:30 77 18 128/61 (83) 99 Room Air 08/10/17 21:15 64 18 134/55 (81) 98 Room Air 08/10/17 21:00 71 18 113/64 (80) 98 Non Rebreather 15.00 08/10/17 20:45 80 18 115/78 (90) 98 Non Rebreather 15.00 08/10/17 20:30 67 18 108/61 (77) 99 Non Rebreather 15.00 08/10/17 20:15 68 18 109/65 (80) 100 Non Rebreather 15.00 08/10/17 20:00 72 18 122/68 (86) 100 Non Rebreather 15.00 08/10/17 19:45 98.4 66 18 118/70 (86) 99 Non Rebreather 15.00 08/10/17 19:30 83 18 119/71 (87) 99 Non Rebreather 15.00 08/10/17 19:15 71 18 103/60 (74) 99 Non Rebreather 15.00 08/10/17 18:45 98.1 66 20 109/65 (80) 99 Room Air 08/10/17 18:30 66 20 116/72 (87) 100 Room Air 08/10/17 18:15 79 20 106/58 (74) 97 Room Air 08/10/17 18:00 79 20 106/58 (74) 97 Room Air 08/10/17 17:45 69 20 108/54 (72) 97 Room Air 08/10/17 17:30 72 20 129/77 (94) 98 Room Air 08/10/17 17:15 66 20 102/58 (73) 98 Room Air 08/10/17 17:00 68 20 95/56 (69) 97 Room Air 5/4/18 16:45 76 20 99/59 (72) 97 Room Air 5//18 16:30 75 20 107/57 (74) 98 Room Air 518 16:15 67 20 117/72 (87) 99 Room Air 5/18 16:00 75 20 106/64 (78) 98 Room Air 5//18 15:45 79 20 103/64 (77) 98 Room Air 518 15:30 92 100/61 (74) 98 5//18 15:15 70 102/63 (76) 98 5//18 15:00 67 110/59 (76) 99 5//18 14:45 70 117/68 (84) 99 518 14:30 98.7 69 104/57 (73) 99 5/18 14:15 79 116/69 (85) 98 5//18 14:00 87 18 110/66 (81) 98 5//18 13:45 76 111/58 (75) 98 5/18 13:30 90 99/53 (68) 98 5//18 13:15 86 97 518 13:10 77 99/55 (70) 98 5//18 13:05 83 103/55 (71) 97 5//18 13:00 99.0 75 18 104/64 (77) 98 5/18 12:55 100 98 5//18 12:50 81 104/56 (72) 97 5//18 12:45 78 109/65 (80) 98 5//18 12:40 82 103/54 (70) 97 5//18 12:35 78 113/70 (84) 99 5/4/18 12:30 85 106/60 (75) 100 5/4/18 12:25 80 117/68 (84) 100 5/4/18 12:20 84 110/63 (79) 100 5/4/18 12:15 80 18 111/65 (80) 99 5/4/18 12:10 78 102/58 (73) 100 5//18 12:05 73 117/69 (85) 100 5//18 12:00 98.4 77 18 115/62 (79) 100 5/4/18 11:40 157 113/70 (84) 5/4/18 11:10 78 99/61 (74) 08/10/17 10:10 98.9 64 18 114/67 (83) I & O 08/11/17 07:00 Intake Total 1000 ml Balance 1000 ml Vital signs are stable. Patient is afebrile. Fundus is firm below the umbilicus and nontender. Extremities show clubbing cyanosis. There is no Homans sign. There is minimal pretibial pitting edema. Assessment and plan status post term spontaneous vaginal delivery early this morning. Plan is for routine convalescence. August 12, 2017 Patient is without complaint. She is ablating, voiding, tolerating by mouth well, has good pain control and is requesting discharge home. Vital Signs Date Time Temp Pulse Resp B/P (MAP) Pulse Ox O2 Delivery O2 Flow Rate FiO2 08/12/17 04:15 98.1 59 16 102/59 (73) 99 Room Air 08/11/17 22:05 98.2 81 16 97/57 (70) 99 Room Air 08/11/17 16:00 98.4 82 16 106/66 (79) Room Air 08/11/17 12:42 97.9 82 18 102/64 (77) 99 Room Air 08/11/17 10:32 98.4 75 18 106/69 (81) 98 Room Air Vital signs are stable. Patient is afebrile. Fundus is firm below the umbilicus and nontender. Extremities show no clubbing cyanosis. There is no Homans sign. Assessment and plan day number 1+ doing well. Plan is for discharge home at patient's request either today or tomorrow Final Diagnosis Term spontaneous vaginal delivery at 38+ weeks CHERRY LACEY MD August 12, 2017 8:36 am
[2017-08-12] MEDS: DOCUSATE SODIUM 100 MG (COLACE) CAP PO SCH ×2 (09:47→22:22)
[2017-08-12 09:48] VITALS: BP 113/63
[2017-08-12 16:00] VITALS: BP 105/58
[2017-08-12 22:15] VITALS: BP 108/62
--- NOTE | 2017-08-13 00:44 | Anesthesia-Regional Post-Op ---
Regional Patient Condition Mental Status: Alert, Oriented x3 Circulation: Same as Pre-Op Headache: Absent Sensation: Full Recovery Motor Block: Absent Post Op Complications Complications post date note from 08/11/2017 at 1405 Follow Up Care/Instructions Patient Instructions None needed. Anesthesia/Patient Condition Patient is doing well, no complaints, stable vital signs, no apparent adverse anesthesia problems. No complications reported per nursing. SHELDON MONTESINOS CRNA August 13, 2017 00:44
[2017-08-13 04:15] VITALS: BP 104/66
[2017-08-13] MEDS: IBUPROFEN 800 MG (MOTRIN) TAB PO SCH ×2 (04:19→09:30)
--- NOTE | 2017-08-13 07:59 | Discharge Summary ---
Discharge Summary 38 week spontaneous vaginal delivery This patient is a 21-year-old gravid female who is admitted from my clinic on Sunday secondary to concern for rupture of membranes of unsure duration. She was observed for several hours found to be benjamin occasionally was demonstrating cervical change epidural was placed Pitocin was used to augment the labor and in the early hours of Sunday morning she delivered precipitously. The delivery was uncomplicated patient recovered uneventfully. Through the day on Sunday patient had routine convalescence care, she ambulated, voiding, tolerating oral intake well, her baby did well. On Sunday which is now day number 1 patient was unchanged she again had routine convalescence care. Now on Sunday patient's day number 2 she is ambulating, voiding, tolerating by mouth well, has good pain control. Patient denies chest pain, denies shortness of breath, denies nausea vomiting, and denies headache. She is requesting discharge home. Principal diagnoses this hospitalization is precipitous spontaneous vaginal delivery at 38+ weeks gestation Secondary diagnoses are the PROM of unknown duration Operation procedures include monitoring, IV antibiotics, Pitocin augmentation of labor, pain is vaginal delivery. She was given appropriate discharge instructions verbally and in writing a couple was placed in chart. Discharge medications are Percocet and Motrin and Colace. Patient is continue her vitamins. Clinical Quality Measures DVT/VTE Risk/Contraindication: Risk Factor Score Per Nursin RFS Level Per Nursing on Admit: 1=Low/No VTE PPX CHERRY LACEY MD August 13, 2017 7:59 am
[2017-08-13 09:30] VITALS: BP 113/69
[2017-08-13] MEDS: DOCUSATE SODIUM 100 MG (COLACE) CAP PO SCH (09:30)
== END 2017-08-13 11:00 | disposition home or self-care (01) | DRG 775 ==
LOC: LDRP 09:45
PROVIDERS: ADMIT Obstetrics & Gynecology; ATTEND Obstetrics & Gynecology
PROC: 0HQ9XZZ Repair Perineum Skin, External Approach (ICD-10-PCS; principal; 2017-08-11)
PROC: 10E0XZZ Delivery of Products of Conception, External Approach (ICD-10-PCS; 2017-08-11)
DX: O42.92 Full-term premature rupture of membranes, unspecified as to length of time between rupture and onset of labor (principal); O62.3 Precipitate labor; O70.0 First degree perineal laceration during delivery; Z3A.38 38 weeks gestation of pregnancy; Z37.0 Single live birth; Z23 Encounter for immunization
CPT/HCPCS: 36415; 83033; 85025; 86850; 86900; 86901; 88307; 90715

== ENCOUNTER → 2018-12-13 | Outpatient (CLI) | payer BC ==
[~2018-12-13] MED LIST changes: +DOCU100C37 PO; +HOLD METFORMIN - RECEIVED CONTRAST 20 ML VIAL IV SCH; +IBUP-1780 PO; +IOHEXOL 350 MG/ML 100 ML (OMNIPAQUE 350) VIAL IV ONE; +NS 100 ML (IVPB) BAG IV ONE; +OXYC-465 PO
--- NOTE | 2018-12-13 17:33 | Consultation - Surgery ---
History of Present Illness History of Present Illness Patient Consulted On(scooby/time) 12/13/18 17:27 Time Seen by Provider: 16:29 History of Present Illness Surgery asked to consult regarding RLQ pain; r/o appendicitis. I met pt at the lab; where she was waiting to get blood drawn for HCG. Pt sta bran her pain started in the umbilical area and then moved down to RLQ. She describes it as a sharp pain and rates it an 11 out of 10. She states she has never had pain like this before, has a hx of kidney stone and stated this doesnt feel like that. She had some nausea but no emesis and states she felt hot at home. Temp at Drs office was 99. Pt did eat a couple of chicken nuggets at 12pm, but states she is not really hungry. Allergies and Home Medications Allergies Coded Allergies: No Known Drug Allergies (Unverified , 04/30/15) Home Medications Docusate Sodium 100 Mg Capsule, 100 MG PO BID Prescribed by: CHERRY PHILLIPS on 08/11/17918 Ibuprofen 800 Mg Tablet, 800 MG PO Q6H Prescribed by: CHERRY PHILLIPS on 08/11/17918 Oxycodone HCl/Acetaminophen 1 Each Tablet, 1-2 TAB PO Q4HR PRN for PAIN-MODERATE TO SEVERE Prescribed by: CHERRY PHILLIPS on 08/11/17918 Vit/Iron Fumarate/FA 1 Each Tablet, 1 EACH PO DAILY, (Reported) Patient Home Medication List Home Medication List Reviewed: Yes Past Lnbwheg-Mttlvg-Rcodql Hx Patient Social History Alcohol Use: Denies Use Recreational Drug Use: No Smoking Status: Never a Smoker Recent Foreign Travel: No Contact w/Someone Who Travel: No Recent Hopitalizations: Yes (KIDNEY STONE RETREVAL ON SUNDAY) Immunizations Up To Date Tetanus Booster (TDap): Unknown PED Vaccines UTD: No Seasonal Allergies Seasonal Allergies: No Surgeries History of Surgeries: Yes (left knee) Respiratory History of Respiratory Disorde: No Cardiovascular History of Cardiac Disorders: No Neurological History of Neurological Disord: No Reproductive System Hx Reproductive Disorders: No Female Reproductive Disorders: Denies Genitourinary History of Genitourinary Disor: Yes Genitourinary Disorders: Kidney Stones Gastrointestinal History of Gastrointestinal Di: Yes Gastrointestinal Disorders: Gastroesophageal Reflux Musculoskeletal History of Musculoskeletal Dis: No Endocrine History of Endocrine Disorders: No Cancer History of Cancer: No Psychosocial History of Psychiatric Problem: No Integumentary History of Skin or Integumenta: No Blood Transfusions History of Blood Disorders: No Adverse Reaction to a Blood Tr: No Family Medical History Significant Family History: Diabetes, Hypertension Family Medial History: Alzheimer's disease 19 MOTHER (grandfather) Completed stroke 19 FATHER (grandfather) Diabetes mellitus 19 FATHER (grandparent) 19 MOTHER (maternal grandparent) Hypertension 19 MOTHER (mother) Non-Hodgkin's lymphoma Respiratory disorder 19 MOTHER (copd grandmother) Review of Systems-General Constitutional: chills; No diaphoresis; weakness EENTM: No blurred vision, No mouth swelling, No throat swelling Respiratory: No cough, No dyspnea on exertion, No short of breath Cardiovascular: No chest pain, No edema, No palpitations Gastrointestinal: RLQ, abdominal pain; No diarrhea; loss of appetite, nausea; No vomiting Genitourinary: No dysuria, No frequency, No hematuria Musculoskeletal: No joint swelling, No muscle pain, No muscle stiffness Skin: No change in color, No change in hair/nails Psychiatric/Neurological: Denies Anxiety, Denies Depressed, Denies Seizure, Denies Tremors Other pt denies any hx of abnormal bleeding or bruising Physical Exam-General Problems Physical Exam Vital Signs Capillary Refill : General Appearance: WD/WN, mild distress Eyes: Bilateral Eye PERRL, Bilateral Eye EOMI HEENT: pharynx normal; No scleral icterus (R), No scleral icterus (L), No pale conjunctivae (R), No pale conjunctivae (L) Neck: non-tender, full range of motion, supple, normal inspection Respiratory: chest non-tender, lungs clear, normal breath sounds, no respiratory distress Cardiovascular: regular rate, rhythm, no murmur Gastrointestinal: soft, no organomegaly, guarding (voluntary), tenderness (right lower quadrant with minimal palpation), hernia Back: normal inspection, no CVA tenderness, no vertebral tenderness Extremities: normal range of motion, non-tender, normal inspection, no pedal edema, no calf tenderness, normal capillary refill Neurologic/Psychiatric: egg packer II-XII nml as tested, no motor/sensory deficits, alert, normal mood/affect, oriented x 3 Skin: normal color, warm/dry Lymphatic: no adenopathy (neck, axilla or groin) Data Review Labs Laboratory Tests 12/13/18 16:44: Serum Test, Qualitative NEGATIVE Assessment/Plan Assessment/Plan Assessment/Plan RLQ pain Ruptured Ovarian Cyst Pt does not need any surgical intervention at this time. She may continue to have some pain; NSAIDS and heating pad or ice may help. Fluid in pelvis will be reabsorbed by her body. She had no questions. If anything changes she can call or go to the ER. Radiologist read this as normal appendix. I have spent over an hour with the pt, following up on labs and radiology films. TANNER MORALES DO Dec 13, 2018 17:33
--- NOTE | 2018-12-13 17:35 | Diagnostic Imaging Report ---
PROCEDURE: CT abdomen and pelvis with contrast, rule out appendicitis. TECHNIQUE: Multiple contiguous axial images were obtained through the abdomen and pelvis after the administration of intravenous contrast. INDICATION: Right lower quadrant pain with nausea and vomiting. COMPARISON: Comparison is made with the CT examination from June 07, 2017. FINDINGS: The lung bases demonstrate no focal infiltrate or consolidation. There is minimal left basilar atelectasis. The liver demonstrates no focal intrahepatic abnormality. Gallbladder is nondistended without radiodense gallstone or biliary dilatation. The portal veins are patent. The spleen is normal in size. Pancreas is unremarkable. There is no adrenal mass. The kidneys enhance normally and appear nonobstructed. Small and large bowel are normal in caliber without evidence of obstruction. The appendix appears normal. There is no abnormal small or large bowel thickening. There is no focal inflammation within the right lower quadrant. Urinary bladder is unremarkable. There is an involuting right ovarian cyst with a small degree of free fluid within the pelvis. There is no abscess or free air. There is no adenopathy. The aorta is normal in caliber. There is no acute or suspicious osseous abnormality. IMPRESSION: 1. There are no findings of bowel obstruction. The appendix appears normal. There is no abnormal bowel thickening. 2. Involuting right ovarian cyst with small degree of free fluid within the pelvis. 3. Otherwise unremarkable CT abdomen and pelvis. Dictated by: Dictated on workstation # [id number]
== END ==
LOC: RAD 16:31
PROVIDERS: ATTEND Family Medicine
DX: N83.201 Unspecified ovarian cyst, right side (principal); R11.2 Nausea with vomiting, unspecified
CPT/HCPCS: 36415; 74177; 84703

== ENCOUNTER 2020-05-12 16:00 | Outpatient (CLI) | payer BC ==
[~2020-05-12] VITALS: Ht 165.1 cm; Wt 76.5 kg
[~2020-05-12 16:00] MED LIST changes: -HOLD METFORMIN - RECEIVED CONTRAST 20 ML VIAL IV SCH; -IOHEXOL 350 MG/ML 100 ML (OMNIPAQUE 350) VIAL IV ONE; -NS 100 ML (IVPB) BAG IV ONE; -OXYC-465 PO; +OXYC-556 PO
--- NOTE | 2020-05-12 16:00 | NUR ---
GAGE FUNG presented to unit via ambulatory from home, accompanied by s/o , with c/o LEAKING. GAGE FUNG weighed, gowned, voided, and to bed. EFHM and TOCO applied, VS taken. GAGE FUNG oriented to bed controls, call light, TV, heat, and A/C controls.
[2020-05-12 16:10] VITALS: BP 120/70
--- NOTE | 2020-05-12 16:10 | NUR ---
pt reports leaking fluid that started yesterday and becoming worse today. no order or color reported. denies recent intercourse. +FM. reports "period" like cramping. denies urinary sx's.
--- NOTE | 2020-05-12 16:21 | NUR ---
Nitrazine negative. no active leaking of fluid noted. wetness noted in vaginal area. SVE closed, thick, anterior and soft- per this RN.
--- NOTE | 2020-05-12 16:27 | NUR ---
was called on cell phone. no answer. message left.
--- NOTE | 2020-05-12 16:30 | NUR ---
returned phone call. reviewed pt's admit c/o's, SVE, and monitor tracing. new order received for wet prep and fern test.
--- NOTE | 2020-05-12 16:47 | NUR ---
wet prep and Fern specimens collected, labeled and sent to lab.
--- NOTE | 2020-05-12 17:10 | NUR ---
culture results reviewed with Dr. Hall. new orders received.
--- NOTE | 2020-05-12 17:28 | NUR ---
dismissal instructions given, verbalizes understanding. copy signed, placed on chart.
--- NOTE | 2020-05-12 17:31 | NUR ---
vaginal culture obtained. sent to lab for anaerobic, aerobic and fungal testing.
--- NOTE | 2020-05-12 17:35 | NUR ---
pt ambulated to private vehicle with s/o @ side. pt stable with no sx's of distress noted.
--- NOTE | 2020-05-13 08:16 | Physician Query-Final Dx ---
LORENZO REAL 05/13/20 0816: Clinic Account Progress/Dx Physician Query: Please give diagnosis Please include # weeks gestation Date of Service May 12, 2020 at 16:00 CHERRY LACEY MD 05/13/20 0818: Clinic Account Progress/Dx DIAGNOSIS: Diagnosis False labor at 34 weeks gestation LORENZO REAL May 13, 2020 08:16 CHERRY LACEY MD May 13, 2020 08:18
== END 2020-05-12 17:35 | disposition home or self-care (01) ==
LOC: LDRP 16:00 → WSo 16:00
PROVIDERS: ATTEND Obstetrics & Gynecology
DX: O47.03 False labor before 37 completed weeks of gestation, third trimester (principal); Z3A.34 34 weeks gestation of pregnancy
CPT/HCPCS: 87070; 87075; 87101; 87205; 87210; Q0114; 36415; 89060; 99214

== ENCOUNTER 2020-06-08 04:20 | Inpatient (IN) | payer BC ==
[2020-06-08] VITALS (53 sets, daily range): BP systolic 93–161; BP diastolic 52–71
[~2020-06-08] VITALS: Ht 165.1 cm; Wt 77.9 kg
[2020-06-08] MEDS ORDERED: IBUP-1780 PO (07:17)
[2020-06-08] MEDS ORDERED: DOCU-143 PO (07:17)
[2020-06-08] MEDS ORDERED: OXYC1TAB87 PO (07:17)
--- NOTE | 2020-06-08 07:17 | Discharge Inst-Surgical ---
Discharge Inst-Surgical Depart Medication/Instructions New, Converted or Re-Newed RX: RX on Chart Consults/Follow Up Patient Instructions: As directed Orders & Referrals Follow Up Appt: Call to make follow up appt. for patient in 4 weeks. Activity Per routine post vaginal delivery instructions. Please call in RX to patient pharmacy. Diet as tolerated Patient may shower or tub bathe as desired. Activity Activity as Tolerated: No Diet Discharge Diet: No Restrictions CHERRY LACEY MD Jun 08, 2020 07:17
--- NOTE | 2020-06-08 07:21 | History & Physical ---
History and Physical Date Seen by Provider: Jun 08, 2020 Time Seen by Provider: 07:18 This patient is a 24-year-old 4 para 2 A1 white female who presents for induction of labor. She was seen yesterday in my clinic with persistent extreme vulvar varicosities but also found with an MIHIR of 51. Patient denies rupture membranes or bleeding she does complain of pain and discomfort with the varicosities. She has had no other problems with this . Her GBS culture after 35 weeks gestation was negative. Allergies are none Medications are vitamins Medical social and surgical history is all per the antepartum record HEENT exam is normal Neck is supple no lymphadenopathy no thyromegaly Abdomen is gravid soft nontender nondistended Extremities show no clubbing or cyanosis. There is no Homans' sign. Pelvic exam shows marked particularly right vulvar varicosities Cervix at last exam was 2 and half centimeters dilated 70% effaced -1 station soft and mid to slightly anterior given a Mcadams score of 8 or greater Assessment and plan term at 38 weeks gestation admitted for induction of labor due to oligohydramnios and a severe/extreme vulvar varicosities. Anticipation is for vaginal delivery Oligohydramnios/extreme vulvar varicosities/38 weeks Allergies and Home Medications Allergies Coded Allergies: No Known Drug Allergies (Unverified , 04/30/15) Home Medications Docusate Sodium 100 Mg Capsule, 100 MG PO BID Prescribed by: CHERRY PHILLIPS on 06/08/20716 Ibuprofen 800 Mg Tablet, 800 MG PO Q6H PRN for PAIN Prescribed by: CHERRY PHILLIPS on 06/08/20716 Oxycodone HCl/Acetaminophen 1 Each Tablet, 1 TAB PO Q4H Prescribed by: CHERRY PHILLIPS on 06/08/20716 Vit/Iron Fumarate/FA 1 Each Tablet, 1 EACH PO DAILY, (Reported) Patient Home Medication List Home Medication List Reviewed: Yes CHERRY LACEY MD Jun 08, 2020 07:21
[2020-06-08 07:42] LABS: BASOPHILS % (AUTO) 0 % (0-10); EOSINOPHILS # (AUTO) 0.1 10^3/uL (0.0-0.3); EOSINOPHILS % (AUTO) 1 % (0-10); HEMATOCRIT 33 % (35-52); HEMOGLOBIN 11.3 g/dL (11.5-16.0); LYMPHOCYTES # (AUTO) 2.6 10^3/uL (1.0-4.0); LYMPHOCYTES % (AUTO) 25 % (12-44); MEAN CORPUSCULAR HEMOGLOBIN 32 pg (25-34); MEAN CORPUSCULAR HGB CONC 34 g/dL (32-36); MEAN CORPUSCULAR VOLUME 93 fL (80-99); MEAN PLATELET VOLUME 11.1 fL (9.0-12.2); MONOCYTES # (AUTO) 0.5 10^3/uL (0.0-1.0); MONOCYTES % (AUTO) 5 % (0-12); NEUTROPHILS % (AUTO) 68 % (42-75); PLATELET COUNT 153 10^3/uL (130-400); WHITE BLOOD COUNT 10.4 10^3/uL (4.3-11.0)
[2020-06-08] MEDS ORDERED: fentaNYL 2 mcg/ml BUPIVA 0.125 100 ML ONE (07:51)
[2020-06-08] MEDS: D5 LR IV SOLUTION 1,000 ML IV SCH ×2 (08:13→23:24)
[2020-06-08] MEDS: OXYTOCIN PRE-MIX DRIP 500 ML IV SCH (08:15)
[2020-06-08] MEDS ORDERED: LACTATED RINGERS 1,000 ML IV SCH (09:30)
[2020-06-08] MEDS ORDERED: EPIDURAL (fentaNYL 2 MCG/ML BUPIVA 0.125%)100 ML BAG EPI PRN (09:30)
[2020-06-08] MEDS ORDERED: diphenhydrAMINE 50 MG/ML INJ (BENADRYL) IV PRN (09:30)
[2020-06-08] MEDS ORDERED: METOCLOPRAMIDE INJ 10 MG/2 ML (REGLAN) IV PRN (09:30)
[2020-06-08] MEDS ORDERED: ONDANSETRON 4 MG/2 ML (SDV) Z0FRAN IV PRN (09:30)
[2020-06-08] MEDS ORDERED: NALOXONE 0.4 MG/ML 1 ML (NARCAN) VIAL IV PRN ×2 (09:30)
[2020-06-08] MEDS ORDERED: fentaNYL 2 mcg/ml BUPIVA 0.125 100 ML EPI PRN (09:30)
[2020-06-08] MEDS ORDERED: LIDOCAINE/EPI 2% 1:200,00 (XYLOCAINE) 10 ML VIAL ONE (14:25)
[2020-06-08] MEDS ORDERED: BENZOCAINE/MENTHOL (DERMOPLAST) 60 ML CAN TP PRN (15:45)
[2020-06-08] MEDS ORDERED: OXYTOCIN PRE-MIX DRIP 500 ML IV SCH (15:45)
[2020-06-08] MEDS ORDERED: oxyCODONE/APAP 5/325MG (PERCOCET 5) TABLET PO PRN (15:45)
[2020-06-08] MEDS ORDERED: TETANUS,DIPTH,PERTUSS P/F (BOOSTRIX) 0.5 ML VIAL IM ONE (15:45)
[2020-06-08] MEDS ORDERED: MEASLES,MUMPS,RUBELLA 1 EA INJ SC ONE (15:45)
[2020-06-08] MEDS ORDERED: ONDANSETRON 4 MG/2 ML (SDV) Z0FRAN IVP PRN (15:45)
[2020-06-08] MEDS ORDERED: WITCH HAZEL(TUCKS) 40 EA JAR ONE (18:53)
[2020-06-08] MEDS: KETOROLAC 30 MG/ML VIAL IVP SCH (19:10)
[2020-06-08] MEDS ORDERED: WITCH HAZEL(TUCKS) 40 EA JAR TOP PRN (19:15)
[2020-06-08] MEDS: DOCUSATE SODIUM 100 MG (COLACE) CAP PO SCH (21:03)
[2020-06-09 00:37] VITALS: BP 90/51
[2020-06-09] MEDS: KETOROLAC 30 MG/ML VIAL IVP SCH ×2 (00:39→06:29)
[2020-06-09] MEDS: D5 LR IV SOLUTION 1,000 ML IV SCH (03:42)
[2020-06-09 03:45] VITALS: BP 103/52
[2020-06-09] MEDS: OXYTOCIN PRE-MIX DRIP 500 ML IV SCH (06:34)
--- NOTE | 2020-06-09 07:14 | Anesthesia-Regional Post-Op ---
Regional Patient Condition Mental Status: Alert, Oriented x3 Circulation: Same as Pre-Op Headache: Absent Sensation: Full Recovery Motor Block: Absent Post Op Complications Complications None Follow Up Care/Instructions Patient Instructions None needed. Anesthesia/Patient Condition Patient is doing well, no complaints, stable vital signs, no apparent adverse anesthesia problems. No complications reported per nursing. D/C home per [facility] [place] Criteria: RESHMA Denise CRNA Jun 09, 2020 07:14
--- NOTE | 2020-06-09 07:16 | Progress Note ---
Standard Progress Note Progress Notes/Assess & Plan Date Seen by a Provider: Jun 09, 2020 Time Seen by a Provider: 07:15 Progress/Assessment & Plan This patient is without complaint. She is ambulating, voiding, tolerating oral intake well and has good pain control. Vital Signs 06/09/20 03:45 Temp 36.3 Pulse 60 Resp 18 B/P (MAP) 103/52 (69) Pulse Ox 97 O2 Delivery Room Air Vital signs are stable. Patient is afebrile. Fundus is firm below the umbilicus and nontender. Extremities show no clubbing or cyanosis. There is no Homans' sign. Assessment and plan day 1 status post term spontaneous vaginal AB doing well. Plan is for routine convalescent care Final Diagnosis 38-week spontaneous vaginal delivery CHERRY LACEY MD Jun 09, 2020 07:16
[2020-06-09] MEDS ORDERED: OXYC1TAB87 PO (07:17)
--- NOTE | 2020-06-09 07:59 | OPERATIVE REPORT ---
DATE OF SERVICE: 06/08/2020 DELIVERY NOTE The patient delivered by term spontaneous vaginal delivery a viable male with Apgars of 9 and 9 at 1 and 5 minutes respectively, weight of 6 pounds, time of 1447 and cord blood pH that is pending. The infant delivered over a first-degree perineal laceration under epidural analgesia. The was bulb suctioned on delivery. Umbilical cord when relatively pulseless was doubly clamped, the father cut the cord, the baby was passed to mom's abdomen. The placenta delivered fairly promptly spontaneously st it was normal with a 3-vessel cord. The cervix, vagina, rectum, and perineum were examined and found to be intact, except for a 1.5 cm first-degree perineal/posterior fourchette laceration that was repaired with a single suture of 3-0 Vicryl Rapide in a running locked fashion. Sponge and needle counts were correct on completion of delivery and repair. Blood loss was around 150 mL. The patient tolerated the delivery and the repair well and remained in the LDR for recovery. The baby remained with the mom. Job ID: [id number] DocumentID: [id number] Dictated Date: 06/09/2020 07:20:16 Log Grader Date: 06/09/2020 07:58:30 Dictated By: CHERRY LACEY MD MTDD
[2020-06-09 08:22] VITALS: BP 104/69
[2020-06-09] MEDS: DOCUSATE SODIUM 100 MG (COLACE) CAP PO SCH (08:28)
[2020-06-09 13:20] VITALS: BP 105/58
[2020-06-09] MEDS ORDERED: IBUPROFEN 800 MG (MOTRIN) TAB PO SCH (15:45)
== END 2020-06-09 18:30 | disposition home or self-care (01) | DRG 806 ==
LOC: LDRP 06:55
PROVIDERS: ADMIT Obstetrics & Gynecology; ATTEND Obstetrics & Gynecology
PROC: 10E0XZZ Delivery of Products of Conception, External Approach (ICD-10-PCS; principal; 2020-06-09)
PROC: 0HQ9XZZ Repair Perineum Skin, External Approach (ICD-10-PCS; 2020-06-09)
DX: O41.03X0 Oligohydramnios, third trimester, not applicable or unspecified (principal); O87.8 Other venous complications in the puerperium; Z37.0 Single live birth; Z3A.38 38 weeks gestation of pregnancy; Z20.822 Contact with and (suspected) exposure to COVID-19; O70.0 First degree perineal laceration during delivery
CPT/HCPCS: 36415; 83033; 85025; 86850; 86900; 86901; 87635